=== PATIENT | female | born 1950 | race Caucasian/White ===

== ENCOUNTER 2017-04-13 14:35 | Emergency (ER) | payer OTHER ==
[~2017-04-13] VITALS: Ht 167.6 cm; Wt 64.9 kg
[2017-04-13 15:29] LABS: Basophils # (auto) 0.1 uL; Basophils % (auto) 0.6 % (0.0-2.0); CONDITION Y; DEFINITIVE SEE PRINTOUT; Eosinophils # (auto) 0.9 uL; Eosinophils % (auto) 8.2 % (0.0-7.0); Hematocrit 28.3 % (36.0-46.0); Hemoglobin 9.5 g/dL (12.2-16.2); Lymphocytes # (auto) 1.7 uL; Lymphocytes % (auto) 14.7 % (10.0-50.0); Mean Corpuscular Hemoglobin 30.4 pg (28.0-32.0); Mean Corpuscular Hgb Conc. 33.6 g/dL (32.0-36.0); Mean Corpuscular Volume 90.4 fL (80.0-100.0); Monocytes # (auto) 0.9 uL; Neutrophils # (auto) 7.7 uL; Neutrophils % (auto) 68.5 % (37.0-80.0); Platelet Count (auto) 700 10^3/uL (140-450); White Blood Cell 11.3 10^3/uL (4.4-10.8)
[2017-04-13] MEDS ORDERED: MORPHINE SULF INJ 2 MG/ML SYRINGE 1ML IV ONE (15:30)
[2017-04-13] MEDS ORDERED: ONDANSETRON HCL 4 MG/2 ML VIAL IV ONE (15:30)
[2017-04-13 15:46] LABS: Albumin 2.8 g/dL (3.4-5.0); Alkaline Phosphatase 81 U/L (45-117); Anion Gap 9 (5-15); Aspartate Aminotransferase 10 U/L (15-37); BUN/Creatinine Ratio 11.2; Bilirubin, Total 0.3 mg/dL (0.2-1.0); Blood Urea Nitrogen 14 mg/dL (7-18); Calcium 8.3 mg/dL (8.5-10.1); Carbon Dioxide 26 mmol/L (21-32); Chloride 96 mmol/L (98-107); GFR African American 55 mL/min; GFR Non-African American 45 mL/min; Glucose 113 mg/dL (74-106); Magnesium 2.3 mg/dL (1.6-2.6); Potassium 4.2 mmol/L (3.5-5.1); Sodium 131 mmol/L (136-145); Total Protein 6.4 g/dL (6.4-8.2)
[2017-04-13] MEDS ORDERED: IBUPROFEN 800 MG TAB PO ONE (18:30)
[2017-04-13 18:41] VITALS: BP 155/76
== END 2017-04-13 19:11 | disposition home or self-care (01) ==
LOC: ER 14:35 → EDBD 14:35 → ER 19:11
DX: R07.89 Other chest pain (principal); I10 Essential (primary) hypertension; J44.9 Chronic obstructive pulmonary disease, unspecified; Z95.1 Presence of aortocoronary bypass graft; Z98.890 Other specified postprocedural states; Z87.891 Personal history of nicotine dependence; Z88.6 Allergy status to analgesic agent; Z88.1 Allergy status to other antibiotic agents; Z91.041 Radiographic dye allergy status
CPT/HCPCS: 36415; 71010; 80053; 83735; 84484; 85025; 93005; 94761; 96374; 96375; 99285; J2270; J2405

== ENCOUNTER 2017-09-26 13:25 | Inpatient (IN) | payer OTHER ==
[~2017-09-26] VITALS: Ht 167.6 cm; Wt 65.8 kg
[2017-09-26 14:57] LABS: Urine WBC None Seen /hpf (0 - 5)
[2017-09-26 15:26] LABS: Urine Bacteria NONE SEEN /hpf (None Seen); Urine Blood Negative /uL (Negative); Urine Specific Gravity 1.002 (1.001-1.035)
[2017-09-26] MEDS ORDERED: methylPREDNISolone SOD SUCC 125 MG/2 ML VL IV ONE (17:30)
[2017-09-26] MEDS ORDERED: IPRATROPIUM BROM 0.5 MG/2.5ML INH SOL HHN ONE (17:30)
[2017-09-26] MEDS ORDERED: ALBUTEROL SULF 2.5 MG/0.5ML(0.5%) NEB SOLN HHN ONE (17:30)
[2017-09-26] MEDS ORDERED: cefTRIAXone 1GM/10ml IVPUSH 10 ML IV ONE (17:30)
[2017-09-26 18:03] LABS: Basophils # (auto) 0 uL; Basophils % (auto) 0.3 % (0.0-2.0); Eosinophils # (auto) 0.1 uL; Eosinophils % (auto) 0.5 % (0.0-7.0); Hematocrit 41.5 % (36.0-46.0); Hemoglobin 13.7 g/dL (12.2-16.2); Lymphocytes # (auto) 0.9 uL; Lymphocytes % (auto) 5.8 % (10.0-50.0); Mean Corpuscular Hemoglobin 28.8 pg (28.0-32.0); Mean Corpuscular Hgb Conc. 33.1 g/dL (32.0-36.0); Mean Corpuscular Volume 86.9 fL (80.0-100.0); Monocytes # (auto) 0.5 uL; Neutrophils # (auto) 13.9 uL; Neutrophils % (auto) 90.4 % (37.0-80.0); Platelet Count (auto) 405 10^3/uL (140-450); Red Blood Cells 4.78 10^6/uL (4.0-5.20); Red Cell Distribution Width 15.1 % (11.8-14.3); White Blood Cell 15.4 10^3/uL (4.4-10.8)
[2017-09-26 18:19] LABS: Albumin 3.5 g/dL (3.4-5.0); Bilirubin, Total 0.5 mg/dL (0.2-1.0); Total Protein 7.9 g/dL (6.4-8.2)
[2017-09-26 18:21] LABS: Magnesium 2.3 mg/dL (1.6-2.6)
[2017-09-26] MEDS ORDERED: PROMETHAZINE HCL 25 MG/ML 1ML IV PRN (19:30)
[2017-09-26] MEDS ORDERED: MORPHINE SULFATE 4 MG/ML SYR/VIAL IV PRN (19:30)
[2017-09-26] MEDS ORDERED: MORPHINE SULF INJ 2 MG/ML SYRINGE 1ML IV PRN (19:30)
[2017-09-26] MEDS ORDERED: OSELTAMIVIR 75 MG CAP PO ONE (19:30)
[2017-09-26] MEDS ORDERED: NITROGLYCERIN 0.4 MG SL TAB SL PRN (19:30)
[2017-09-26] MEDS ORDERED: HYDROcodone-ACET 5/325MG TAB PO PRN (19:30)
[2017-09-26] MEDS ORDERED: ALBUTEROL SULF 2.5 MG/0.5ML(0.5%) NEB SOLN NEB PRN (19:30)
[2017-09-26] MEDS ORDERED: ACETAMINOPHEN 500 MG TAB PO PRN (19:30)
[2017-09-26] MEDS ORDERED: LACTULOSE 20Gm/30ML SOLN PO PRN (19:30)
[2017-09-26] MEDS ORDERED: LABETALOL HCL 5 MG/ML ML 20ML VIAL IV PRN ×2 (19:45)
[2017-09-26] MEDS ORDERED: METOPROLOL TARTRATE 50 MG TAB PO ONE (19:45)
[2017-09-26] MEDS ORDERED: cloNIDine HCL 0.1 MG TAB PO ONE (20:45)
[2017-09-26] MEDS ORDERED: AZITHROMYCIN 500MG/ 250ML 250 ML IV SCH (21:00)
[2017-09-26] MEDS: SODIUM CHLORIDE 0.9% 1,000 ML IV SCH (21:06)
[2017-09-26 21:44] VITALS: BP 164/95
[2017-09-26] MEDS ORDERED: CARVEDILOL 3.125 MG TAB PO SCH (22:00)
[2017-09-26] MEDS: hydrALAZINE HCL 10 MG TAB PO SCH (23:03)
[2017-09-27] MEDS: methylPREDNISolone SOD SUCC 40 MG/ML VL IV SCH ×4 (01:32→17:49)
[2017-09-27] MEDS ORDERED: cloNIDine HCL 0.1 MG TAB PO ONE (02:00)
[2017-09-27] MEDS ORDERED: LIDOCAINE HCL 100 MG/5ML (2%) SYRG INJ IV ONE ×2 (06:21→06:30)
[2017-09-27] MEDS: hydrALAZINE HCL 10 MG TAB PO SCH ×2 (06:30→13:58)
[2017-09-27] MEDS: IPRATROPIUM BROM 0.5 MG/2.5ML INH SOL NEB SCH ×3 (06:35→11:48)
[2017-09-27] MEDS: ALBUTEROL SULF 2.5 MG/0.5ML(0.5%) NEB SOLN NEB SCH ×3 (06:35→11:48)
[2017-09-27 07:46] LABS: Basophils # (auto) 0 uL; Basophils % (auto) 0.2 % (0.0-2.0); Eosinophils # (auto) 0 uL; Hematocrit 40.6 % (36.0-46.0); Hemoglobin 13.2 g/dL (12.2-16.2); Lymphocytes # (auto) 0.8 uL; Mean Corpuscular Hemoglobin 28.8 pg (28.0-32.0); Mean Corpuscular Hgb Conc. 32.5 g/dL (32.0-36.0); Mean Corpuscular Volume 88.6 fL (80.0-100.0); Monocytes # (auto) 0.1 uL; Monocytes % (auto) 1.3 % (0.0-12.0); Neutrophils # (auto) 7.5 uL; Neutrophils % (auto) 89.5 % (37.0-80.0); Platelet Count (auto) 363 10^3/uL (140-450); Red Blood Cells 4.58 10^6/uL (4.0-5.20); Red Cell Distribution Width 15.2 % (11.8-14.3); White Blood Cell 8.4 10^3/uL (4.4-10.8)
[2017-09-27 08:05] VITALS: BP 148/84
[2017-09-27 08:19] LABS: Alanine Aminotransferase 18 U/L (13-56); Albumin 3.1 g/dL (3.4-5.0); Alkaline Phosphatase 70 U/L (45-117); Anion Gap 9 (5-15); Aspartate Aminotransferase 10 U/L (15-37); BUN/Creatinine Ratio 14.4; Bilirubin, Total 0.3 mg/dL (0.2-1.0); Blood Urea Nitrogen 17 mg/dL (7-18); Calcium 8.7 mg/dL (8.5-10.1); Carbon Dioxide 25 mmol/L (21-32); Chloride 102 mmol/L (98-107); Cholesterol 218 mg/dL (< 200); GFR African American 58 mL/min; GFR Non-African American 48 mL/min; Glucose 135 mg/dL (74-106); HDL Cholesterol 74 mg/dL (40-59); LDL Cholesterol 150 mg/dL (< 100); Potassium 4.5 mmol/L (3.5-5.1); Sodium 136 mmol/L (136-145); Total Protein 7.3 g/dL (6.4-8.2); Triglycerides 72 mg/dL (< 150)
[2017-09-27] MEDS: SODIUM CHLORIDE 0.9% 1,000 ML IV SCH (09:11)
[2017-09-27] MEDS ORDERED: amLODIPine BESYLATE 5 MG TAB PO ONE (09:15)
[2017-09-27] MEDS ORDERED: ASPirin 81 mg TAB PO SCH (10:00)
[2017-09-27] MEDS ORDERED: OSELTAMIVIR 75 MG CAP PO SCH (10:00)
[2017-09-27] MEDS ORDERED: NITROGLYCERIN 0.2MG/HR TOPICAL PATCH TD SCH (10:00)
[2017-09-27] MEDS ORDERED: ENOXAPARIN SOD 40 MG/0.4 ML SYRINGE SC SCH (10:00)
[2017-09-27] MEDS ORDERED: ENALAPRIL MALEATE 2.5 MG TAB PO SCH (10:00)
[2017-09-27] MEDS ORDERED: METOPROLOL TARTRATE 50 MG TAB PO SCH (10:00)
[2017-09-27 10:55] VITALS: BP 148/84
[2017-09-27] MEDS ORDERED: HYDR10TA26 PO (11:13)
[2017-09-27] MEDS ORDERED: METO-169 PO (11:13)
[2017-09-27] MEDS ORDERED: ALPR0.25 PO (11:13)
[2017-09-27 11:56] VITALS: BP 128/67
[2017-09-27 17:11] VITALS: BP 137/96
[2017-09-27 17:24] VITALS: BP 137/96
[2017-09-27] MEDS ORDERED: cefTRIAXone 1GM/10ml IVPUSH 10 ML IV SCH (21:00)
[2017-09-27] MEDS ORDERED: ATORVASTATIN 20 MG TAB PO SCH (22:00)
[2017-09-28] MEDS ORDERED: AZITHROMYCIN 250 MG TAB PO SCH (10:00)
== END 2017-09-27 18:55 | disposition home or self-care (01) | DRG 871 ==
LOC: ER 13:25 → TELE 13:26 → TELE-EAST 09-27 07:56
PROVIDERS: ADMIT Internal Medicine; ATTEND Internal Medicine
DX: A41.9 Sepsis, unspecified organism (principal); I50.43 Acute on chronic combined systolic (congestive) and diastolic (congestive) heart failure; J96.10 Chronic respiratory failure, unspecified whether with hypoxia or hypercapnia; I11.0 Hypertensive heart disease with heart failure; J18.9 Pneumonia, unspecified organism; Z99.81 Dependence on supplemental oxygen; J44.0 Chronic obstructive pulmonary disease with (acute) lower respiratory infection; J44.1 Chronic obstructive pulmonary disease with (acute) exacerbation; Z95.1 Presence of aortocoronary bypass graft; I16.0 Hypertensive urgency; E78.5 Hyperlipidemia, unspecified; F41.9 Anxiety disorder, unspecified; I25.10 Atherosclerotic heart disease of native coronary artery without angina pectoris; I49.3 Ventricular premature depolarization; J20.9 Acute bronchitis, unspecified; Z79.899 Other long term (current) drug therapy; Z87.891 Personal history of nicotine dependence
CPT/HCPCS: 36415; 80053; 80061; 81001; 82550; 83605; 83735; 83880; 84443; 84484; 85025; 85379; 86141; 87040; 87070; 87205; 87400; 93005; 93306; 94640; 96365; 96375

== ENCOUNTER 2018-03-22 22:11 | Inpatient (IN) | payer OTHER ==
[~2018-03-22] VITALS: Ht 167.6 cm; Wt 72.0 kg
[~2018-03-22 22:11] MED LIST: ALPR0.25 PO; HYDR10TA26 PO; METO-169 PO
[2018-03-23] MEDS ORDERED: IPRATROPIUM BROM 0.5 MG/2.5ML INH SOL ONE (00:21)
[2018-03-23] MEDS ORDERED: ALBUTEROL SULF 2.5 MG/0.5ML(0.5%) NEB SOLN ONE (00:21)
[2018-03-23] MEDS ORDERED: PIPERACILLIN-TAZOB 3.375GM 100 ML IV ONE (00:57)
[2018-03-23] MEDS ORDERED: cefTRIAXone 1GM/10ml IVPUSH 10 ML IV ONE (00:57)
[2018-03-23] MEDS ORDERED: HYDROcodone-ACET 5/325MG TAB ONE (01:49)
[2018-03-23 03:35] LABS: Partial Thromboplastin Time 27.5 sec (23.78-33.04); Prothrombin Time 10.7 sec (9.27-12.13)
[2018-03-23 03:36] LABS: Basophils # (auto) 0.1 uL; Basophils % (auto) 0.3 % (0.0-2.0); Eosinophils # (auto) 0 uL; Eosinophils % (auto) 0.1 % (0.0-7.0); Hematocrit 42.3 % (36.0-46.0); Hemoglobin 14.3 g/dL (12.2-16.2); Lymphocytes # (auto) 1.2 uL; Lymphocytes % (auto) 6.4 % (10.0-50.0); Mean Corpuscular Hemoglobin 30.1 pg (28.0-32.0); Mean Corpuscular Hgb Conc. 33.9 g/dL (32.0-36.0); Mean Corpuscular Volume 88.9 fL (80.0-100.0); Monocytes # (auto) 0.9 uL; Monocytes % (auto) 4.9 % (0.0-12.0); Neutrophils # (auto) 16.1 uL; Neutrophils % (auto) 88.3 % (37.0-80.0); Nucleated Red Blood Cells % 0.1 %; Platelet Count (auto) 302 10^3/uL (140-450); Red Blood Cells 4.76 10^6/uL (4.0-5.20); Red Cell Distribution Width 13.8 % (11.8-14.3); White Blood Cell 18.3 10^3/uL (4.4-10.8)
[2018-03-23] MEDS ORDERED: FUROSEMIDE 20 MG/2 ML VIAL IV ONE (04:30)
[2018-03-23] MEDS ORDERED: ACETAMINOPHEN 500 MG TAB PO PRN (04:30)
[2018-03-23] MEDS ORDERED: FUROSEMIDE 20 MG/2 ML VIAL ONE (04:45)
[2018-03-23] MEDS: CLINDAMYCIN 600MG IV 50 ML IV SCH ×2 (05:36→14:25)
[2018-03-23] MEDS: ONDANSETRON HCL 4 MG/2 ML VIAL IV PRN ×3 (05:38→18:51)
[2018-03-23] MEDS: HYDROcodone-ACET 5/325MG TAB PO PRN ×2 (05:39→14:25)
[2018-03-23 05:54] LABS: Basophils # (auto) 0.1 uL; Basophils % (auto) 0.5 % (0.0-2.0); Eosinophils # (auto) 0 uL; Eosinophils % (auto) 0.1 % (0.0-7.0); Hematocrit 40.4 % (36.0-46.0); Lymphocytes # (auto) 1.2 uL; Lymphocytes % (auto) 6.2 % (10.0-50.0); Mean Corpuscular Hemoglobin 30.5 pg (28.0-32.0); Mean Corpuscular Hgb Conc. 34.7 g/dL (32.0-36.0); Mean Corpuscular Volume 87.8 fL (80.0-100.0); Monocytes # (auto) 1.3 uL; Monocytes % (auto) 6.4 % (0.0-12.0); Neutrophils # (auto) 17.1 uL; Neutrophils % (auto) 86.8 % (37.0-80.0); Nucleated Red Blood Cells % 0.1 %; Platelet Count (auto) 285 10^3/uL (140-450); Red Cell Distribution Width 14.1 % (11.8-14.3); White Blood Cell 19.7 10^3/uL (4.4-10.8)
[2018-03-23] MEDS: IPRATROPIUM BROM 0.5 MG/2.5ML INH SOL NEB SCH ×3 (06:07→19:03)
[2018-03-23] MEDS: ALBUTEROL SULF 2.5 MG/0.5ML(0.5%) NEB SOLN NEB SCH ×3 (06:08→19:03)
[2018-03-23 06:24] LABS: Urine Bacteria NONE SEEN /hpf (None Seen); Urine Blood Negative /uL (Negative); Urine Hyaline Cast FEW /lpf (0 - 2); Urine Specific Gravity 1.013 (1.001-1.035); Urine WBC 4 /hpf (0 - 5)
[2018-03-23 06:58] LABS: Anion Gap 13 (5-15); BUN/Creatinine Ratio 11.2; Blood Urea Nitrogen 24 mg/dL (7-18); Carbon Dioxide 25 mmol/L (21-32); Chloride 101 mmol/L (98-107); GFR African American 29 mL/min; GFR Non-African American 24 mL/min; Glucose 98 mg/dL (74-106); Potassium 4.6 mmol/L (3.5-5.1); Sodium 139 mmol/L (136-145)
[2018-03-23 06:59] LABS: Alanine Aminotransferase 20 U/L (13-56); Albumin 3.3 g/dL (3.4-5.0); Alkaline Phosphatase 61 U/L (45-117); Aspartate Aminotransferase 14 U/L (15-37); Bilirubin, Total 0.8 mg/dL (0.2-1.0); Calcium 8.4 mg/dL (8.5-10.1); Total Protein 6.8 g/dL (6.4-8.2)
[2018-03-23 07:20] VITALS: BP 120/77
[2018-03-23] MEDS ORDERED: cefTRIAXone 1GM/10ml IVPUSH 10 ML IV SCH (09:00)
[2018-03-23] MEDS ORDERED: SPIRONOLACTONE 25 MG TAB PO SCH (10:00)
[2018-03-23] MEDS ORDERED: METOPROLOL SUCCINATE XL 50 MG TAB PO SCH (10:00)
[2018-03-23] MEDS ORDERED: ASPirin-EC 81 mg tab PO SCH (10:00)
[2018-03-23] MEDS ORDERED: FAMOTIDINE 20 MG TAB PO SCH (10:00)
[2018-03-23] MEDS ORDERED: ALBU0.5N2 IN (13:43)
[2018-03-23] MEDS ORDERED: IPRIH IN (13:43)
[2018-03-23] MEDS ORDERED: SPIR25TA89 PO (13:43)
[2018-03-23 14:35] VITALS: BP 111/60
[2018-03-23 16:58] VITALS: BP 127/65
[2018-03-23] MEDS ORDERED: PROMETHAZINE HCL 25 MG/ML 1ML IV PRN (19:15)
[2018-03-23 22:02] VITALS: BP 128/66
[2018-03-24] MEDS ORDERED: FUROSEMIDE 40 MG/4 ML VIAL IV SCH (10:00)
== END 2018-03-24 | disposition short-term general hospital (02) | DRG 604 ==
LOC: ER 22:11 → TELE 22:12 → TELE-WESTW 03-23 12:44
PROVIDERS: ADMIT Nurse Practitioner Family; ATTEND Family Medicine
DX: S21.109A Unspecified open wound of unspecified front wall of thorax without penetration into thoracic cavity, initial encounter (principal); J96.20 Acute and chronic respiratory failure, unspecified whether with hypoxia or hypercapnia; J44.1 Chronic obstructive pulmonary disease with (acute) exacerbation; Z99.81 Dependence on supplemental oxygen; I11.0 Hypertensive heart disease with heart failure; I50.9 Heart failure, unspecified; Z95.1 Presence of aortocoronary bypass graft; E78.5 Hyperlipidemia, unspecified; Z83.3 Family history of diabetes mellitus; Z87.891 Personal history of nicotine dependence; X58.XXXA Exposure to other specified factors, initial encounter; Y93.89 Activity, other specified; Y92.89 Other specified places as the place of occurrence of the external cause; Y99.8 Other external cause status
CPT/HCPCS: 36415; 71045; 80053; 81001; 83735; 83880; 84484; 85025; 85379; 85610; 85730; 87040; 87077; 87086; 87186; 87205; 93005; 94640; 96374; 96375; J2405; J2543; J3490

== ENCOUNTER 2018-05-10 17:11 | Emergency (ER) | payer OTHER ==
[~2018-05-10] VITALS: Ht 167.6 cm; Wt 66.7 kg
[~2018-05-10 17:11] MED LIST changes: +ALBU0.5N2 IN; +IPRIH IN; +SPIR25TA89 PO
[2018-05-11 00:42] LABS: Basophils # (auto) 0.1 uL; Basophils % (auto) 0.8 % (0.0-2.0); Eosinophils # (auto) 0.9 uL; Eosinophils % (auto) 10.9 % (0.0-7.0); Hematocrit 38.6 % (36.0-46.0); Hemoglobin 12.8 g/dL (12.2-16.2); Lymphocytes # (auto) 2.3 uL; Mean Corpuscular Hgb Conc. 33.1 g/dL (32.0-36.0); Mean Corpuscular Volume 84.7 fL (80.0-100.0); Monocytes # (auto) 0.8 uL; Monocytes % (auto) 9.1 % (0.0-12.0); Neutrophils # (auto) 4.2 uL; Neutrophils % (auto) 51.2 % (37.0-80.0); Platelet Count (auto) 445 10^3/uL (140-450); Red Blood Cells 4.56 10^6/uL (4.0-5.20); Red Cell Distribution Width 13.9 % (11.8-14.3); White Blood Cell 8.3 10^3/uL (4.4-10.8)
[2018-05-11 00:59] LABS: BUN/Creatinine Ratio 16.9; Calcium 8.7 mg/dL (8.5-10.1)
[2018-05-11] MEDS ORDERED: VANCOMYCIN 1GM/250ML 250 ML IV ONE (03:15)
[2018-05-11] MEDS ORDERED: HYDROcodone-ACET 10/325MG TAB PO ONE (03:15)
[2018-05-11 04:15] VITALS: BP 120/78
== END 2018-05-11 04:06 | disposition home or self-care (01) ==
LOC: ER 17:20
DX: T81.32XA Disruption of internal operation (surgical) wound, not elsewhere classified, initial encounter (principal); T81.4XXA Infection following a procedure, initial encounter; J44.9 Chronic obstructive pulmonary disease, unspecified; E78.5 Hyperlipidemia, unspecified; I10 Essential (primary) hypertension; I25.810 Atherosclerosis of coronary artery bypass graft(s) without angina pectoris; Z88.8 Allergy status to other drugs, medicaments and biological substances; Z88.1 Allergy status to other antibiotic agents; Z79.899 Other long term (current) drug therapy; Z95.1 Presence of aortocoronary bypass graft; Z87.891 Personal history of nicotine dependence; Y84.2 Radiological procedure and radiotherapy as the cause of abnormal reaction of the patient, or of later complication, without mention of misadventure at the time of the procedure; Y92.89 Other specified places as the place of occurrence of the external cause
CPT/HCPCS: 36415; 80048; 85025; 87205; 93005; 99285; J3370

== ENCOUNTER 2019-07-17 07:01 | Inpatient (IN) | payer OTHER ==
[~2019-07-17] VITALS: Ht 162.6 cm; Wt 66.6 kg
[~2019-07-17 07:01] MED LIST changes: +SPIR25TA8 PO; -SPIR25TA89 PO
[2019-07-17] MEDS ORDERED: methylPREDNISolone SOD SUCC 125 MG/2 ML VL IV ONE (07:15)
[2019-07-17] MEDS ORDERED: diphenhdrAMINE HCL 50 MG/1 ML VL IV ONE (07:15)
[2019-07-17] MEDS ORDERED: cefTRIAXone 1GM/50ML D5W 50 ML IV ONE (07:30)
[2019-07-17] MEDS ORDERED: IPRATROPIUM BROM 0.5 MG/2.5ML INH SOL NEB ONE (07:30)
[2019-07-17] MEDS ORDERED: ALBUTEROL SULF 2.5 MG/0.5ML(0.5%) NEB SOLN NEB ONE (07:30)
[2019-07-17 07:43] LABS: Basophils # (auto) 0.1 uL; Basophils % (auto) 0.5 % (0.0-2.0); Eosinophils # (auto) 0 uL; Eosinophils % (auto) 0.2 % (0.0-7.0); Hematocrit 45.7 % (36.0-46.0); Hemoglobin 15.2 g/dL (12.2-16.2); Lymphocytes # (auto) 1.2 uL; Mean Corpuscular Hemoglobin 29.9 pg (28.0-32.0); Mean Corpuscular Hgb Conc. 33.2 g/dL (32.0-36.0); Mean Corpuscular Volume 89.9 fL (80.0-100.0); Monocytes # (auto) 1.1 uL; Monocytes % (auto) 10.5 % (0.0-12.0); Neutrophils # (auto) 7.7 uL; Neutrophils % (auto) 76.8 % (37.0-80.0); Nucleated Red Blood Cells % 0.1 %; Platelet Count (auto) 312 10^3/uL (140-450); Red Blood Cells 5.09 10^6/uL (4.0-5.20); Red Cell Distribution Width 13.7 % (11.8-14.3)
[2019-07-17 08:07] LABS: Alanine Aminotransferase 23 U/L (13-56); Albumin 3.5 g/dL (3.4-5.0); Anion Gap 6 (5-15); Aspartate Aminotransferase 16 U/L (15-37); BUN/Creatinine Ratio 16.2; Blood Urea Nitrogen 19 mg/dL (7-18); Calcium 8.6 mg/dL (8.5-10.1); Carbon Dioxide 32 mmol/L (21-32); Chloride 99 mmol/L (98-107); GFR African American 59 mL/min; GFR Non-African American 49 mL/min; Glucose 99 mg/dL (74-106); Magnesium 2.3 mg/dL (1.6-2.6); Potassium 3.8 mmol/L (3.5-5.1); Sodium 137 mmol/L (136-145)
[2019-07-17 08:10] LABS: Alkaline Phosphatase 80 U/L (45-117); Bilirubin, Total 0.3 mg/dL (0.2-1.0); Total Protein 7.2 g/dL (6.4-8.2)
[2019-07-17] MEDS ORDERED: HYDR-4296 PO (09:26)
[2019-07-17] MEDS ORDERED: ASPI81CH43 PO (09:26)
[2019-07-17] MEDS ORDERED: AMLO5TAB15 PO (09:26)
[2019-07-17] MEDS ORDERED: METH4PAK PO (09:26)
[2019-07-17] MEDS ORDERED: AZITHROMYCIN 250 MG TAB PO ONE (13:15)
[2019-07-17] MEDS ORDERED: HYDROcodone-ACET 5/325MG TAB PO PRN (13:15)
[2019-07-17] MEDS ORDERED: ONDANSETRON HCL 4 MG/2 ML VIAL IV PRN (13:15)
[2019-07-17] MEDS ORDERED: ENALAPRILAT 1.25 MG/ML-1ML VIAL IV PRN (13:15)
[2019-07-17] MEDS ORDERED: ACETAMINOPHEN 500 MG TAB PO PRN (13:15)
[2019-07-17] MEDS ORDERED: MORPHINE SULF INJ 2 MG/ML SYRINGE 1ML IV PRN ×2 (13:15)
[2019-07-17] MEDS ORDERED: NITROGLYCERIN 0.4 MG SL TAB SL PRN (13:15)
[2019-07-17 13:52] VITALS: BP 171/72
[2019-07-17] MEDS: hydrALAZINE HCL 25 MG TAB PO SCH ×2 (14:00→21:48)
[2019-07-17] MEDS: ALBUTEROL SULF 2.5 MG/0.5ML(0.5%) NEB SOLN NEB SCH ×3 (14:09→22:35)
[2019-07-17] MEDS: IPRATROPIUM BROM 0.5 MG/2.5ML INH SOL NEB SCH ×3 (14:09→22:36)
--- NOTE | 2019-07-17 15:06 | NUR ---
Telemetry admit from ER SHELBY LUGO admitted to Telemetry unit after SBAR received. Patient oriented to SEAN CARRILLO, primary RN, unit, room, bed, and unit policies regarding patient care and visiting hours. Patient now on continuous telemetry monitoring. Patient placed on bedside oxygen, weighed by bedscale and encouraged to call if they need something. All questions and concerns addressed, patient verbalized understanding.
[2019-07-17 16:34] VITALS: BP 153/74
--- NOTE | 2019-07-17 17:00 | NUR ---
PT REPORTED HOME MEDS IN HER POSSESSION. WILL LABEL AND PLACE IN NURSES STATION. DAUGHTER WILL WELDING MACHINE OPERATOR [employer].
[2019-07-17] MEDS: BUDESONIDE (INHALATION) 0.5 MG/2 ML NEB NEB SCH (18:00)
--- NOTE | 2019-07-17 19:00 | NUR ---
HOME MEDICATIONS PATIENT REPORTED THAT HER DAUGHTER WOULD COME IN TO GRINDER HER MEDICATIONS AND REFUSED TO HAVE THEM HELD IN THE NURSES STATION. PATIENT STATED "YOU WILL NOT TAKE MY MEDICATIONS. LAST TIME THEY GOT LOST". WILL REPORT TO NIGHT NURSE.
--- NOTE | 2019-07-17 19:00 | NUR ---
OPENING NOTE- NOC SHIFT PATIENT IS ALERT AND ORIENTED X4 AND ANSWERS IN COMPLETE SENTENCES; PAUSING AND TAKING BREATHS IN BETWEEN EVERY FEW WORDS. PATIENT HAS 2L NC SAT O2 IS 96%. PATIENT IS IN BED, BED IS UP >30 DEGREES FOR SAFETY PRECAUTIONS. BED RAILS UP X2 AND BEDSIDE TABLE WITH PERSONAL BELONGINGS WITHIN REACH. DISCUSSED POC WITH PATIENT AND INSTRUCTED PATIENT TO CALL PRN; PATIENT VERBALIZED UNDERSTANDING. WILL CONTINUE TO MONITOR Q1H AND PRN. PATIENT ROOM IS DIRECTLY ACROSS FROM NURSE'S STATION.
--- NOTE | 2019-07-17 19:30 | NUR ---
IV TO RIGHT FOREARM NOT FLUSHING. PATIENT REPORTS PAIN TO SITE. IV removal IV DC'd with sterile technique, catheter fully intact. Pressure dressing applied to site. Patient tolerated procedure well.
[2019-07-17 20:00] VITALS: BP 160/75
--- NOTE | 2019-07-17 20:10 | NUR ---
MRSA RUSSO SWAB SENT TO LAB
--- NOTE | 2019-07-17 20:10 | NUR ---
INFLUENZA SWAB SENT TO LAB
--- NOTE | 2019-07-17 21:45 | NUR ---
PATIENT STATES THAT SHE IS ABLE TO TAKE SOLUMEDROL WITH BENADRYL WITHOUT HAVING AN ADVERSE REACTION. WILL ADMINISTER AND MONITOR CLOSELY.
[2019-07-17] MEDS: methylPREDNISolone SOD SUCC 40 MG/ML VL IV SCH (21:47)
[2019-07-17] MEDS: diphenhdrAMINE HCL 50 MG/1 ML VL IV PRN (21:48)
--- NOTE | 2019-07-17 21:55 | NUR ---
PATIENT RESTING IN BED. NO RASH NOTED. NO S/SX OF DISTRESS, SOB OR PAIN. PATIENT ALERT AND ORIENTED X4, SITTING UP IN BED WATCHING TELEVISION.
[2019-07-17] MEDS: ALPRAZolam 0.25 MG TAB PO SCH (21:59)
[2019-07-17 22:00] VITALS: BP 160/75
--- NOTE | 2019-07-17 22:10 | NUR ---
PATIENT SITTING UP IN BED. PATIENT ANSWERS IN COMPLETE SENTENCES. NO RASH OR REDNESS NOTED. IV SITE CLEAR OF ADVERSITY.
--- NOTE | 2019-07-17 22:30 | NUR ---
PATIENT TOLERATED SOLUMEDROL WITH BENADRYL WELL AND WITHOUT ADVERSE SIDE EFFECTS. WILL ENDORSE TO DAY SHIFT NURSE TO FOLLOW UP WITH MD FOR FURTHER ORDERS OR IF OK TO CONTINUE TO ADMINISTER SOLUMEDROL WITH BENADRYL.
--- NOTE | 2019-07-17 22:35 | NUR ---
RT AT BEDSIDE FOR SCHEDULED NEB TX.
--- NOTE | 2019-07-18 00:43 | NUR ---
ROUNDS PATIENT COMFORTABLE IN BED, SLEEPING. RESPIRATIONS ARE EVEN AND UNLABORED. 2L NC. NO S/SX OF DISTRESS OR SOB.
--- NOTE | 2019-07-18 00:50 | NUR ---
BLOOD CULTURE POSITIVE FOR GRAM POSITIVE COCCI IN CLUSTERS PER STOCK CHECKERER. WILL PAGE HOSPITALIST.
[2019-07-18] MEDS: IPRATROPIUM BROM 0.5 MG/2.5ML INH SOL NEB SCH ×6 (02:04→22:22)
[2019-07-18] MEDS: ALBUTEROL SULF 2.5 MG/0.5ML(0.5%) NEB SOLN NEB SCH ×6 (02:04→22:22)
--- NOTE | 2019-07-18 04:05 | NUR ---
PAGED HOSPITALIST TO REPORT POSITIVE BLOOD CULTURE RESULTS. AWAITING CALL BACK.
--- NOTE | 2019-07-18 05:30 | NUR ---
HOSPITALIST CALL BACK WITH ORDERS FOR POSITIVE BLOOD CULTURE.
[2019-07-18 05:36] VITALS: BP 142/75
[2019-07-18] MEDS ORDERED: VANCOMYCIN PER PHARMACY 0 MG IV SCH (06:30)
[2019-07-18] MEDS ORDERED: VANCOMYCIN 1GM/250ML 250 ML IV ONE (06:30)
[2019-07-18] MEDS: hydrALAZINE HCL 25 MG TAB PO SCH ×3 (06:50→22:13)
[2019-07-18 06:57] LABS: Basophils # (auto) 0 uL; Basophils % (auto) 0.2 % (0.0-2.0); Eosinophils # (auto) 0 uL; Hematocrit 42.6 % (36.0-46.0); Hemoglobin 14.1 g/dL (12.2-16.2); Lymphocytes # (auto) 0.5 uL; Lymphocytes % (auto) 6.9 % (10.0-50.0); Mean Corpuscular Hgb Conc. 33.2 g/dL (32.0-36.0); Mean Corpuscular Volume 90.4 fL (80.0-100.0); Monocytes # (auto) 0.3 uL; Monocytes % (auto) 3.5 % (0.0-12.0); Neutrophils % (auto) 89.4 % (37.0-80.0); Platelet Count (auto) 272 10^3/uL (140-450); Red Blood Cells 4.71 10^6/uL (4.0-5.20); Red Cell Distribution Width 13.5 % (11.8-14.3); White Blood Cell 7.8 10^3/uL (4.4-10.8)
[2019-07-18 07:02] LABS: Potassium 4.5 mmol/L (3.5-5.1)
[2019-07-18 07:11] LABS: Albumin 3.2 g/dL (3.4-5.0); BUN/Creatinine Ratio 23.8; Bilirubin, Total 0.2 mg/dL (0.2-1.0); Calcium 8.8 mg/dL (8.5-10.1); Total Protein 6.5 g/dL (6.4-8.2)
--- NOTE | 2019-07-18 07:42 | NUR ---
ENDORSED PATIENT CARE TO DAY SHIFT NURSE JOHN YOST. NO S/SX OF DISTRESS, SOB OR PAIN.
[2019-07-18 08:00] VITALS: BP 152/79
[2019-07-18] MEDS: ASPirin-EC 325mg tab PO SCH (10:14)
[2019-07-18] MEDS: methylPREDNISolone SOD SUCC 40 MG/ML VL IV SCH ×2 (10:15→22:07)
[2019-07-18] MEDS: diphenhdrAMINE HCL 50 MG/1 ML VL IV PRN ×2 (10:15→22:07)
[2019-07-18] MEDS: AZITHROMYCIN 250 MG TAB PO SCH (10:15)
[2019-07-18] MEDS: amLODIPine BESYLATE 5 MG TAB PO SCH (10:17)
[2019-07-18] MEDS: BUDESONIDE (INHALATION) 0.5 MG/2 ML NEB NEB SCH ×2 (10:32→18:50)
[2019-07-18 12:00] VITALS: BP 158/78
[2019-07-18] MEDS ORDERED: ALPRAZolam 0.25 MG TAB PO PRN (15:00)
[2019-07-18 16:49] VITALS: BP 159/83
--- NOTE | 2019-07-18 19:00 | NUR ---
OPENING NOTE- NOC SHIFT PATIENT IS ALERT SITTING UP IN BED. BED IS LOCKED AT LOWEST. DISCUSSED POC WITH PATIENT AND INSTRUCTED PATIENT TO CALL PRN; PATIENT VERBALIZED UNDERSTANDING. WILL CONTINUE TO MONITOR FOR CHANGES.
--- NOTE | 2019-07-18 20:25 | NUR ---
PATIENT WITH MODERATE SOB WITH MINIMAL EXERTION. PATIENT USED COMMODE, BECAME SOB WHEN GETTING BACK INTO BED. HEAD OF BED IS UP >3O DEGREES. NC AT 2L. SAT 02 IS 89%; PATIENT DOES NOT WANT O2 LEVEL INCREASED.
--- NOTE | 2019-07-18 20:30 | NUR ---
PAGED RT FOR BIPAP
--- NOTE | 2019-07-18 20:59 | NUR ---
RT AT BEDSIDE TO GET PATIENT ON BIPAP
[2019-07-18 21:50] VITALS: BP 174/75
[2019-07-18] MEDS: ALPRAZolam 0.25 MG TAB PO SCH (22:00)
--- NOTE | 2019-07-18 22:22 | NUR ---
RT AT BEDSIDE FOR SCHEDULED BREATHING TREATMENT
--- NOTE | 2019-07-19 02:22 | NUR ---
RT AT BEDSIDE FOR SCHEDULED BREATHING TREATMENT.
[2019-07-19] MEDS: ALBUTEROL SULF 2.5 MG/0.5ML(0.5%) NEB SOLN NEB SCH ×6 (02:24→22:09)
[2019-07-19] MEDS: IPRATROPIUM BROM 0.5 MG/2.5ML INH SOL NEB SCH ×6 (02:24→22:09)
--- NOTE | 2019-07-19 04:07 | NUR ---
EKG FOR CHEST PAIN PATIENT REPORTS PRESSURE PAIN TO CHEST /10. ADMINISTERED 1 DOSE OF NITROGLYCERIN PER MD ORDERS ON eMAR, CHEST PAIN PROTOCOL. CHEST PAIN RESOLVED AFTER ONE NITROGLYCERIN DOSE. BP 154/88 HR 93
--- NOTE | 2019-07-19 04:56 | NUR ---
ROUNDS PATIENT IS COMFORTABLE IN BED. DENIES CHEST PAIN. USING NC AT 2L. PATIENT TOLERATING WELL.
[2019-07-19] MEDS: BUDESONIDE (INHALATION) 0.5 MG/2 ML NEB NEB SCH ×2 (06:00→19:03)
--- NOTE | 2019-07-19 06:03 | NUR ---
RT AT BEDSIDE FOR SCHEDULED TREATMENT.
--- NOTE | 2019-07-19 06:23 | NUR ---
PT REQUESTING CORTES INSERTION PATIENT STATES THAT SHE IS HAVING TO GET UP TO "PEE EVERY 30 MINUTES AND I AM EXHAUSTED." WILL ENDORSE REQUEST TO DAY SHIFT NURSE.
[2019-07-19 06:33] LABS: Basophils # (auto) 0 uL; Basophils % (auto) 0.1 % (0.0-2.0); Eosinophils # (auto) 0 uL; Hemoglobin 14.1 g/dL (12.2-16.2); Lymphocytes # (auto) 0.6 uL; Lymphocytes % (auto) 4.5 % (10.0-50.0); Mean Corpuscular Hemoglobin 29.4 pg (28.0-32.0); Mean Corpuscular Hgb Conc. 32.8 g/dL (32.0-36.0); Mean Corpuscular Volume 89.7 fL (80.0-100.0); Monocytes # (auto) 0.5 uL; Monocytes % (auto) 3.5 % (0.0-12.0); Neutrophils # (auto) 12.5 uL; Neutrophils % (auto) 91.9 % (37.0-80.0); Platelet Count (auto) 281 10^3/uL (140-450); Red Blood Cells 4.79 10^6/uL (4.0-5.20); Red Cell Distribution Width 13.9 % (11.8-14.3); White Blood Cell 13.6 10^3/uL (4.4-10.8)
[2019-07-19] MEDS: hydrALAZINE HCL 25 MG TAB PO SCH ×3 (06:35→21:55)
[2019-07-19] MEDS: VANCOMYCIN 1GM/250ML 250 ML IV SCH (06:35)
[2019-07-19 06:52] LABS: BUN/Creatinine Ratio 31.2; Magnesium 2.7 mg/dL (1.6-2.6); Potassium 4.4 mmol/L (3.5-5.1)
--- NOTE | 2019-07-19 08:00 | NUR ---
Opening Shift Note Assumed care of patient, awake and alert. No S/S of distress/SOB or pain. Instructed on POC and to call for assist PRN, will continue to monitor for changes Q1hr and PRN.
[2019-07-19 08:47] VITALS: BP 189/86
[2019-07-19] MEDS: ASPirin-EC 325mg tab PO SCH (09:45)
[2019-07-19] MEDS: methylPREDNISolone SOD SUCC 40 MG/ML VL IV SCH (09:45)
[2019-07-19] MEDS: amLODIPine BESYLATE 5 MG TAB PO SCH (09:45)
[2019-07-19] MEDS: diphenhdrAMINE HCL 50 MG/1 ML VL IV PRN ×2 (09:45→21:56)
[2019-07-19] MEDS: AZITHROMYCIN 250 MG TAB PO SCH (09:46)
--- NOTE | 2019-07-19 11:42 | NUR ---
Nutrition Assessment Notes please see attached link for complete assessment Estimated need based on BW (62 kg): 1550-1860kcal (25-30 kcal/kg BW), 49-62 gms protein (0.8-1.0 g/kg BW r/t elev RFT). Will continue to monitor pertinent labs and reassess nutrient need prn Addendum: 07/19/19 at [address] Amended: Links added.
[2019-07-19] MEDS: SALINE 0.65 % NASAL SPRAY 45ML BOTTLE EACHNOSTRI SCH ×3 (12:55→21:55)
[2019-07-19 13:00] VITALS: BP 152/77
[2019-07-19] MEDS ORDERED: SALINE 0.65 % NASAL SPRAY 45ML BOTTLE EACHNOSTRI ONE (13:00)
[2019-07-19 17:00] VITALS: BP 151/81
--- NOTE | 2019-07-19 21:29 | NUR ---
IV removal d/t infiltration: IV to left hand DC'd with sterile technique, catheter fully intact. Pressure dressing applied to site. Patient tolerated procedure well.
--- NOTE | 2019-07-19 21:30 | NUR ---
IV insertion IV access to left forearm obtained, via clean sterile technique by inserting 24 gauge catheter after first attempt. IV secured properly. No trauma to site. Patient tolerated well. NOTE: Patient was requesting to have the smallest size IV possible d/t patient stating "I hate getting poked".
[2019-07-19 21:48] VITALS: BP 133/65
[2019-07-19 21:51] VITALS: BP 133/65
[2019-07-19] MEDS: methylPREDNISolone SOD SUCC 125 MG/2 ML VL IV SCH (21:55)
[2019-07-19] MEDS: ALPRAZolam 0.25 MG TAB PO SCH (21:56)
--- NOTE | 2019-07-19 21:56 | NUR ---
Patient refused 2200 blood pressure medication d/t patient stating diastolic BP is to low for her to take any blood pressure medications. Patients BP was 133/65.
[2019-07-20] MEDS: ALBUTEROL SULF 2.5 MG/0.5ML(0.5%) NEB SOLN NEB SCH ×6 (02:11→22:14)
[2019-07-20] MEDS: IPRATROPIUM BROM 0.5 MG/2.5ML INH SOL NEB SCH ×6 (02:11→22:14)
--- NOTE | 2019-07-20 04:21 | NUR ---
Care endorsed to Brenda YOST.
[2019-07-20 04:44] VITALS: BP 143/78
[2019-07-20] MEDS: hydrALAZINE HCL 25 MG TAB PO SCH ×3 (06:00→22:27)
[2019-07-20] MEDS: SALINE 0.65 % NASAL SPRAY 45ML BOTTLE EACHNOSTRI SCH ×4 (06:11→22:11)
[2019-07-20] MEDS: VANCOMYCIN 1GM/250ML 250 ML IV SCH (06:47)
--- NOTE | 2019-07-20 07:00 | NUR ---
Closing Note patient resting in bed with oxygen on at 2L via NC with even and unlabored respirations, no s/s of distress. Bed low locked position with side rails up x 2 and call light within reach. Endorsed care to day shift RN.
[2019-07-20] MEDS: BUDESONIDE (INHALATION) 0.5 MG/2 ML NEB NEB SCH ×2 (07:19→17:47)
[2019-07-20 07:29] VITALS: BP 162/85
[2019-07-20 08:13] VITALS: BP 159/83
[2019-07-20] MEDS: methylPREDNISolone SOD SUCC 125 MG/2 ML VL IV SCH (09:21)
[2019-07-20] MEDS: diphenhdrAMINE HCL 50 MG/1 ML VL IV PRN ×2 (09:21→22:11)
[2019-07-20] MEDS: ASPirin-EC 325mg tab PO SCH (09:21)
[2019-07-20] MEDS: amLODIPine BESYLATE 5 MG TAB PO SCH (09:21)
[2019-07-20] MEDS: AZITHROMYCIN 250 MG TAB PO SCH (09:22)
[2019-07-20 11:55] VITALS: BP 164/84
[2019-07-20 12:46] LABS: BUN/Creatinine Ratio 36.1; Calcium 9.2 mg/dL (8.5-10.1); Potassium 4.6 mmol/L (3.5-5.1)
--- NOTE | 2019-07-20 14:00 | NUR ---
UNABLE TO TO ADMINISTER 1400 [address]. TX. AT THIS TIME, DUE TO BRONCHOSCOPY PROCEDURE IN GI LAB, WILL SEE PT. FOR NEXT SCHEDULED TX. OR PT. MAY CALL IF NEEDED.
[2019-07-20 17:00] VITALS: BP 158/85
--- NOTE | 2019-07-20 19:45 | NUR ---
Opening Shift Note Assumed care of patient, awake and alert, oriented x 4, follows directions, clear speech. On oxygen at 2L via NC with even and unlabored respirations, no S/S of distress or SOB.Patient is able to turn independently in bed. IV intact and patent. bed low locked position with side rails up x 2 and call light within reach. Instructed on POC and to call for assist PRN, will continue to monitor for changes Q1hr and PRN.
[2019-07-20 22:00] VITALS: BP 160/91
[2019-07-20] MEDS: ALPRAZolam 0.25 MG TAB PO SCH (22:00)
[2019-07-20] MEDS: methylPREDNISolone SOD SUCC 40 MG/ML VL IV SCH (22:11)
[2019-07-21] VITALS (8 sets, daily range): BP systolic 146–169; BP diastolic 81–93
[2019-07-21] MEDS: hydrALAZINE HCL 25 MG TAB PO SCH ×3 (05:18→21:27)
[2019-07-21] MEDS: SALINE 0.65 % NASAL SPRAY 45ML BOTTLE EACHNOSTRI SCH ×4 (05:19→21:28)
[2019-07-21] MEDS: BUDESONIDE (INHALATION) 0.5 MG/2 ML NEB NEB SCH ×2 (05:53→22:35)
[2019-07-21] MEDS: ALBUTEROL SULF 2.5 MG/0.5ML(0.5%) NEB SOLN NEB SCH ×5 (05:53→22:34)
[2019-07-21] MEDS: IPRATROPIUM BROM 0.5 MG/2.5ML INH SOL NEB SCH ×5 (05:53→22:35)
[2019-07-21] MEDS: VANCOMYCIN 1GM/250ML 250 ML IV SCH (06:59)
[2019-07-21] MEDS ORDERED: diphenhdrAMINE HCL 50 MG/1 ML VL ONE (10:02)
[2019-07-21] MEDS: AZITHROMYCIN 250 MG TAB PO SCH (10:09)
[2019-07-21] MEDS: ASPirin-EC 325mg tab PO SCH (10:09)
[2019-07-21] MEDS: methylPREDNISolone SOD SUCC 40 MG/ML VL IV SCH ×2 (10:10→22:18)
[2019-07-21] MEDS: amLODIPine BESYLATE 5 MG TAB PO SCH (10:10)
[2019-07-21] MEDS: diphenhdrAMINE HCL 50 MG/1 ML VL IV PRN ×2 (10:11→22:18)
--- NOTE | 2019-07-21 15:20 | NUR ---
MD ROUNDS DR CRUZ AT BEDSIDE DISCUSSING POC WITH PATIENT. ALL QUESTIONS/CONCERNS ANSWERED. NEW ORDERS RECEIVED/CARRIED OUT. WILL CONTINUE TO MONITOR
--- NOTE | 2019-07-21 16:36 | NUR ---
assessment Patient is a 68 year old female who is alert and oriented. Patients cognitive abilities are intact. Prior to admission patient lived home with her daughter Mariola and functioned with assistance. Per patient she will return home to her prior living arrangements post discharge and family will transport her home. Patient informed me she has a scooter, 02, and a fww for home use. Patient was admitted for exacerbation of her COPD. Patient informed me she is feeling better and has what she needs at home. Patient may benefit from home health safety eval on discharge. I informed patient she has a right to speak to a rn social services regarding all care. I informed patient she has a right to participate in any and all discharge planning. Patient has a POA and advanced directive. Patient verbalized understanding and agreed to discharge plan. Addendum: 07/21/19 at 1642 by Neeru KAUR Amended: Links added.
--- NOTE | 2019-07-21 19:20 | NUR ---
Opening Shift Note Assumed care of patient, awake and alert x4. Patient denies pain at this time. No S/S of distress noted at this time. Instructed on plan of care and to call for assistance as needed, patient verbalized understanding. Bed is locked in lowest position, side rails x 2 are up, and call light is within reach.
[2019-07-21] MEDS: ALPRAZolam 0.25 MG TAB PO SCH (21:28)
--- NOTE | 2019-07-21 22:00 | NUR ---
IV REMOVAL IV to left forearm noted to be swollen and resistant when flushing. IV to left forearm DC'd with clean sterile technique, catheter fully intact. Pressure dressing applied to site. Provided patient with an ice pack and instructed patient to place ice pack over site and elevate arm, patient verbalized understanding.
--- NOTE | 2019-07-21 22:15 | NUR ---
IV INSERTION IV access obtained, via clean sterile technique by inserting 22 gauge catheter at right hand after 1 attempt. IV secured properly. No trauma to site. Patient tolerated well.
[2019-07-22] MEDS: hydrALAZINE HCL 25 MG TAB PO SCH ×2 (04:49→14:00)
[2019-07-22 04:54] VITALS: BP 168/82
[2019-07-22] MEDS: IPRATROPIUM BROM 0.5 MG/2.5ML INH SOL NEB SCH ×3 (06:13→13:58)
[2019-07-22] MEDS: ALBUTEROL SULF 2.5 MG/0.5ML(0.5%) NEB SOLN NEB SCH ×3 (06:13→13:58)
[2019-07-22] MEDS: SALINE 0.65 % NASAL SPRAY 45ML BOTTLE EACHNOSTRI SCH ×2 (06:25→12:00)
[2019-07-22] MEDS: VANCOMYCIN 1GM/250ML 250 ML IV SCH (06:25)
[2019-07-22 06:35] VITALS: BP 155/84
--- NOTE | 2019-07-22 07:25 | NUR ---
Open Shift Note Received report on patient, awake and sitting up in bed. Patient shows no signs of distress at this time, states "I feel better than yesterday". Discussed POC with patient, patient states they want to go home today. Bed in lowest locked position, side rails up x2 and call light within reach. Will continue to monitor.
[2019-07-22 08:29] VITALS: BP 162/88
[2019-07-22] MEDS: ASPirin-EC 325mg tab PO SCH (10:04)
[2019-07-22] MEDS: methylPREDNISolone SOD SUCC 40 MG/ML VL IV SCH (10:04)
[2019-07-22] MEDS: diphenhdrAMINE HCL 50 MG/1 ML VL IV PRN (10:04)
[2019-07-22] MEDS: AZITHROMYCIN 250 MG TAB PO SCH (10:05)
[2019-07-22] MEDS: amLODIPine BESYLATE 5 MG TAB PO SCH (10:05)
[2019-07-22] MEDS: BUDESONIDE (INHALATION) 0.5 MG/2 ML NEB NEB SCH (10:12)
[2019-07-22 12:45] VITALS: BP 150/83
[2019-07-22 14:13] VITALS: BP 150/83
--- NOTE | 2019-07-22 15:15 | NUR ---
Discharged Discharge instructions given as ordered. Encourage to follow up with PMD as instructed. All questions and concerns addressed. Patient verbalized understanding. New prescriptions given to patient, and patient given med rec and informed to continue home medications. IV removed with catheter intact, pressure dressing applied. Telemetry unit returned to ICU. Patient taken to vehicle via wheelchair with all personal belongings, accompanied by staff and family member. No distress noted at time of departure.
== END 2019-07-22 16:37 | disposition home or self-care (01) | DRG 189 ==
LOC: EDBD 07:01 → ER 07:08 → TELE 07:09 → TELE-EAST 15:07
PROVIDERS: ADMIT Nurse Practitioner Acute Care; ATTEND Internal Medicine Geriatric Medicine
PROC: 5A09357 Assistance with Respiratory Ventilation, Less than 24 Consecutive Hours, Continuous Positive Airway Pressure (ICD-10-PCS; principal; 2019-07-17)
PROC: 5A09357 Assistance with Respiratory Ventilation, Less than 24 Consecutive Hours, Continuous Positive Airway Pressure (ICD-10-PCS; 2019-07-18)
DX: J96.20 Acute and chronic respiratory failure, unspecified whether with hypoxia or hypercapnia (principal); N18.3 Chronic kidney disease, stage 3 (moderate); J43.9 Emphysema, unspecified; I12.9 Hypertensive chronic kidney disease with stage 1 through stage 4 chronic kidney disease, or unspecified chronic kidney disease; I25.10 Atherosclerotic heart disease of native coronary artery without angina pectoris; Z95.1 Presence of aortocoronary bypass graft; F41.9 Anxiety disorder, unspecified; Z79.82 Long term (current) use of aspirin; Z79.899 Other long term (current) drug therapy; Z83.3 Family history of diabetes mellitus; Z87.891 Personal history of nicotine dependence; Z99.81 Dependence on supplemental oxygen
CPT/HCPCS: 36415; 36600; 71045; 80048; 80053; 80202; 82805; 83605; 83735; 83880; 84484; 85025; 87040; 87077; 87081; 87186; 87804; 93005; 93306; 94640; 94660; 94761; 96365; 96375; 99291; G0378; J0696

== ENCOUNTER 2020-03-25 08:11 | Inpatient (IN) | payer OTHER ==
[~2020-03-25] VITALS: Ht 162.6 cm; Wt 76.0 kg
[~2020-03-25 08:11] MED LIST changes: +AMLO5TAB15 PO; +ASPI81CH43 PO; +HYDR-4296 PO; -HYDR10TA26 PO; +METH4PAK PO; -SPIR25TA8 PO
[2020-03-25] MEDS ORDERED: methylPREDNISolone SOD SUCC 125 MG/2 ML VL ONE (08:17)
[2020-03-25] MEDS ORDERED: EPINEPHrine HCL 0.5 ML NEB ONE (08:20)
[2020-03-25] MEDS ORDERED: SODIUM CHLORIDE 0.9% 1,000 ML IV ONE ×2 (08:34→16:00)
[2020-03-25 08:48] LABS: Basophils # (auto) 0.1 10 ^3/uL (0-0.2); Basophils % (auto) 0.7 % (0.0-2.0); Eosinophils # (auto) 0.3 10 ^3/uL (0-0.8); Eosinophils % (auto) 4.1 % (0.0-7.0); Hematocrit 38.1 % (36.0-46.0); Lymphocytes # (auto) 1.7 10 ^3/uL (0.4-5.4); Lymphocytes % (auto) 20.8 % (10.0-50.0); Mean Corpuscular Hemoglobin 29.6 pg (28.0-32.0); Mean Corpuscular Hgb Conc. 34.2 g/dL (32.0-36.0); Mean Corpuscular Volume 86.6 fL (80.0-100.0); Monocytes # (auto) 0.6 10 ^3/uL (0-1.3); Monocytes % (auto) 7.6 % (0.0-12.0); Neutrophils # (auto) 5.6 10 ^3/uL (1.6-8.6); Neutrophils % (auto) 66.8 % (37.0-80.0); Platelet Count (auto) 364 10^3/uL (140-450); Red Cell Distribution Width 14.6 % (11.8-14.3); White Blood Cell 8.3 10^3/uL (4.4-10.8)
[2020-03-25 09:10] LABS: Alanine Aminotransferase 18 U/L (13-56); Albumin 3.2 g/dL (3.4-5.0); Anion Gap 5 (5-15); Blood Urea Nitrogen 14 mg/dL (7-18); Calcium 9.2 mg/dL (8.5-10.1); Carbon Dioxide 28 mmol/L (21-32); Chloride 106 mmol/L (98-107); Glucose 114 mg/dL (74-106); Magnesium 2.3 mg/dL (1.6-2.6); Potassium 3.9 mmol/L (3.5-5.1); Sodium 139 mmol/L (136-145)
[2020-03-25 09:14] LABS: INR 0.99 (0.9-1.15); Partial Thromboplastin Time 27.3 sec (23.64-32.05)
[2020-03-25 09:15] LABS: Alkaline Phosphatase 65 U/L (45-117); Aspartate Aminotransferase 12 U/L (15-37); BUN/Creatinine Ratio 10.3; Bilirubin, Total 0.4 mg/dL (0.2-1.0); GFR African American 49 mL/min; GFR Non-African American 41 mL/min; Total Protein 6.9 g/dL (6.4-8.2)
[2020-03-25] MEDS ORDERED: EPINEPHrine HCL 0.5 ML NEB NEB ONE (09:30)
[2020-03-25] MEDS ORDERED: FUROSEMIDE 40 MG/4 ML VIAL IV ONE (10:00)
[2020-03-25] MEDS ORDERED: IPRATROPIUM BROM 0.5 MG/2.5ML INH SOL NEB ONE (11:15)
[2020-03-25] MEDS ORDERED: ALBUTEROL SULF 2.5 MG/0.5ML(0.5%) NEB SOLN NEB ONE (11:15)
[2020-03-25 11:24] LABS: Urine Bacteria FEW /hpf (None Seen); Urine Blood Negative /uL (Negative); Urine Specific Gravity 1.011 (1.001-1.035); Urine WBC 17 /hpf (0 - 5)
[2020-03-25] MEDS ORDERED: cefTRIAXone 1GM/50ML D5W 50 ML IV ONE (12:15)
[2020-03-25] MEDS ORDERED: MORPHINE SULF INJ 2 MG/ML SYRINGE 1ML IV PRN (16:00)
[2020-03-25] MEDS ORDERED: DexAMETHasone SOD PHOS 4 MG/1ML SDV INJ IV ONE (16:00)
[2020-03-25] MEDS ORDERED: NITROGLYCERIN 0.4 MG SL TAB SL PRN (16:00)
[2020-03-25] MEDS: FUROSEMIDE 20 MG/2 ML VIAL IV SCH (17:33)
[2020-03-25] MEDS ORDERED: DexAMETHasone SOD PHOS 4 MG/1ML SDV INJ IV SCH (18:00)
[2020-03-25 18:02] VITALS: BP 150/66
[2020-03-25] MEDS: ALBUTEROL SULF 2.5 MG/0.5ML(0.5%) NEB SOLN NEB SCH ×2 (18:02→22:00)
[2020-03-25] MEDS: IPRATROPIUM BROM 0.5 MG/2.5ML INH SOL NEB SCH ×2 (18:02→22:00)
--- NOTE | 2020-03-25 18:25 | NUR ---
Respiratory note: PER PT REQUEST TO COME OFF BIPAP. PT PLACED ON NC2L AND MAINTAINING SPO2 92-94%. PT IS AWAKE AND ALERT. MADE PT AWARE IF HER SPO2 DROPS THAT SHE WILL GO BACK ON BIPAP FOR THE NIGHT. BS DIM WITH FAINT FINE CRACKLES. WILL CONTINUE TO MONITOR PT T/O SHIFT.
--- NOTE | 2020-03-25 22:00 | NUR ---
Respiratory note: MEDICATION HELD DUE TO PT BEING ON AIRBORNE PRECAUTIONS AND NOT IN NEGATIVE PRESSURE ROOM. RN AWARE AND AGREES WITH DECISION. PT REMAINS ON NC2L. SPO2 92, HR 90, RR 22. BS DIM WITH FAINT CRACKLES AT BASES. PT IS NOT SOB AT THIS TIME.
[2020-03-25] MEDS: methylPREDNISolone SOD SUCC 40 MG/ML VL IV SCH (22:12)
[2020-03-26] VITALS (8 sets, daily range): BP systolic 136–157; BP diastolic 52–77
[2020-03-26] MEDS ORDERED: SODIUM CHLORIDE 0.9% 1,000 ML IV SCH
[2020-03-26] MEDS ORDERED: hydrALAZINE HCL 20 MG/ML VL IV PRN (00:15)
[2020-03-26] MEDS ORDERED: DOCUSATE SOD 100 MG CAP PO PRN (00:30)
[2020-03-26] MEDS ORDERED: LORazepam 0.5 MG TAB PO PRN (00:30)
[2020-03-26] MEDS ORDERED: HYDROcodone-ACET 5/325MG TAB PO PRN (00:30)
[2020-03-26] MEDS ORDERED: NITROGLYCERIN 0.4 MG SL TAB SL PRN (00:30)
[2020-03-26] MEDS ORDERED: ONDANSETRON HCL 4 MG/2 ML VIAL IV PRN (00:30)
[2020-03-26] MEDS ORDERED: ALUM & MAG HYDROX-SIMETH LIQ(MAALOX) 30 ML PO PRN (00:30)
[2020-03-26] MEDS ORDERED: MORPHINE SULF INJ 2 MG/ML SYRINGE 1ML IV PRN ×2 (00:30)
[2020-03-26] MEDS: ALBUTEROL SULF 2.5 MG/0.5ML(0.5%) NEB SOLN NEB SCH ×6 (01:07→22:25)
[2020-03-26] MEDS: IPRATROPIUM BROM 0.5 MG/2.5ML INH SOL NEB SCH ×6 (01:07→23:46)
--- NOTE | 2020-03-26 04:00 | NUR ---
Telemetry admit from ER SHELBY LUGO admitted to Telemetry unit after SBAR received. Patient oriented to Lana George RN primary RN, unit, room, bed, and unit policies regarding patient care and visiting hours. Patient now on continuous telemetry monitoring, tele box # and telemetry reading on arrival to unit is SR. Patient placed on bedside oxygen at 2 Lpm/NC, weighed by bedscale and encouraged to call if they need something. All questions and concerns addressed, patient verbalized understanding, will continue to monitor Note: []
--- NOTE | 2020-03-26 04:45 | NUR ---
Patient complained of chest pain 8/10, burning in sensation. Chest pain protocol done, EKG attached to chart, maintained O2, will continue to monitor
--- NOTE | 2020-03-26 05:00 | NUR ---
Reassessed chest pain and per patient, chest pain relieved, will continue to monitor
[2020-03-26] MEDS: hydrALAZINE HCL 25 MG TAB PO SCH ×3 (06:00→22:00)
[2020-03-26] MEDS: FUROSEMIDE 20 MG/2 ML VIAL IV SCH (06:32)
[2020-03-26] MEDS: methylPREDNISolone SOD SUCC 40 MG/ML VL IV SCH ×3 (06:33→21:52)
--- NOTE | 2020-03-26 06:33 | NUR ---
Patient refused Hydralazine med at this time. Per patient, she takes it only if BP is SBP > 165
[2020-03-26] MEDS ORDERED: AMLO5TAB15 PO (06:36)
[2020-03-26 07:46] LABS: Amphetamine Screen, Urine NEGATIVE (NEGATIVE); Barbiturate Scree,Urine NEGATIVE (NEGATIVE); Benzodiazephine Screen, Urine NEGATIVE (NEGATIVE); Cocaine Screen, Urine NEGATIVE (NEGATIVE); Opiate Scree,Urine NEGATIVE (NEGATIVE); Phencyclidine Screen, Urine NEGATIVE (NEGATIVE)
[2020-03-26 07:47] LABS: Alcohol, Urine < 3.0 mg/dL (0-10)
[2020-03-26 07:54] LABS: Cannabinoid Screen, Urine POSITIVE (NEGATIVE)
--- NOTE | 2020-03-26 08:00 | NUR ---
Received pt resting in bed, call light within reach, no pain reported at this time, will continue to monitor pt.
[2020-03-26] MEDS ORDERED: cefTRIAXone 1GM/50ML D5W 50 ML IV SCH (09:00)
[2020-03-26 09:03] LABS: Basophils # (auto) 0 10 ^3/uL (0-0.2); Basophils % (auto) 0.1 % (0.0-2.0); Eosinophils # (auto) 0 10 ^3/uL (0-0.8); Hematocrit 36.8 % (36.0-46.0); Hemoglobin 12.1 g/dL (12.2-16.2); Lymphocytes # (auto) 0.5 10 ^3/uL (0.4-5.4); Lymphocytes % (auto) 5.2 % (10.0-50.0); Mean Corpuscular Hemoglobin 28.4 pg (28.0-32.0); Mean Corpuscular Hgb Conc. 32.9 g/dL (32.0-36.0); Mean Corpuscular Volume 86.3 fL (80.0-100.0); Monocytes # (auto) 0.2 10 ^3/uL (0-1.3); Monocytes % (auto) 1.6 % (0.0-12.0); Neutrophils # (auto) 9.3 10 ^3/uL (1.6-8.6); Neutrophils % (auto) 93.1 % (37.0-80.0); Platelet Count (auto) 351 10^3/uL (140-450); Red Blood Cells 4.26 10^6/uL (4.0-5.20); Red Cell Distribution Width 14.5 % (11.8-14.3)
[2020-03-26 09:19] LABS: Albumin 3.3 g/dL (3.4-5.0); Anion Gap 7 (5-15); Blood Urea Nitrogen 26 mg/dL (7-18); Calcium 8.8 mg/dL (8.5-10.1); Carbon Dioxide 26 mmol/L (21-32); Chloride 106 mmol/L (98-107); Glucose 158 mg/dL (74-106); Magnesium 2.4 mg/dL (1.6-2.6); Potassium 3.7 mmol/L (3.5-5.1); Sodium 139 mmol/L (136-145)
[2020-03-26 09:23] LABS: INR 1.01 (0.9-1.15); Partial Thromboplastin Time 26.5 sec (23.64-32.05)
[2020-03-26 09:27] LABS: Alanine Aminotransferase 19 U/L (13-56); Alkaline Phosphatase 63 U/L (45-117); Aspartate Aminotransferase 7 U/L (15-37); BUN/Creatinine Ratio 17.7; Bilirubin, Total 0.3 mg/dL (0.2-1.0); GFR African American 45 mL/min; GFR Non-African American 37 mL/min; Phosphorus 3.6 mg/dL (2.5-4.90)
[2020-03-26] MEDS: ENOXAPARIN SOD 40 MG/0.4 ML SYRINGE SC SCH (10:00)
[2020-03-26 10:17] LABS: Cholesterol 223 mg/dL (< 200); HDL Cholesterol 54 mg/dL (40-59); LDL Cholesterol 167 mg/dL (< 100); Triglycerides 67 mg/dL (< 150)
--- NOTE | 2020-03-26 10:30 | NUR ---
Dr. Dhillon / pulerica at unit to see pt, doctor ordered CXR for tomorrow.
[2020-03-26] MEDS: METOPROLOL SUCCINATE XL 50 MG TAB PO SCH (10:39)
[2020-03-26] MEDS: ASPirin 81 mg TAB PO SCH (10:39)
[2020-03-26] MEDS: AZITHROMYCIN 500MG/ 250ML 250 ML IV SCH (10:41)
[2020-03-26] MEDS ORDERED: ALBU108A5 IN (16:01)
[2020-03-26] MEDS ORDERED: AMLO10TA13 PO (16:01)
[2020-03-26] MEDS ORDERED: amLODIPine BESYLATE 5 MG TAB PO ONE (17:00)
--- NOTE | 2020-03-27 00:02 | NUR ---
Mee Hood, RN, [employer], hospitalist, paged re. request of RT as Dr. Dhillon noted that would start Lasix 40mg q day but did not order it and pt SOB earlier. RT also requesting med for anxiety. had noted that pt has recorded allergy to lorazepam, but did not order any other med.
--- NOTE | 2020-03-27 00:40 | NUR ---
Dr. Weinberg paged re. poss. lasix order and med for anxiety; message left on answering machine.
--- NOTE | 2020-03-27 01:33 | NUR ---
Second page to Dr. Weinberg as no answer from prev. page.
--- NOTE | 2020-03-27 01:34 | NUR ---
Paging RT for tx for pt.
--- NOTE | 2020-03-27 01:52 | NUR ---
Pt sitting up right in bed, tripod position with resp moving upper body forward and backward. O2 sat on 1lpm 87-88. O2 increased to 2lpm with O2 sat increasing to 90.
--- NOTE | 2020-03-27 02:11 | NUR ---
RT at bedside.
[2020-03-27] MEDS: ALBUTEROL SULF 2.5 MG/0.5ML(0.5%) NEB SOLN NEB SCH ×6 (02:47→22:17)
[2020-03-27] MEDS: IPRATROPIUM BROM 0.5 MG/2.5ML INH SOL NEB SCH ×6 (02:47→22:17)
[2020-03-27] MEDS: methylPREDNISolone SOD SUCC 40 MG/ML VL IV SCH ×3 (05:44→22:24)
[2020-03-27 06:00] VITALS: BP 137/79
[2020-03-27] MEDS: hydrALAZINE HCL 25 MG TAB PO SCH ×3 (06:00→22:00)
--- NOTE | 2020-03-27 07:30 | NUR ---
Opening Shift Note Assumed care of patient, awake and alert, A&Ox4. Patient found sitting up in bed with no S/S of distress. Patient on 2L via NC, O2 sat at 93%. No pain at this time. Safety measures were maintained by keeping the bed at the lowest position, side rails up, items and call light within reach. Patient instructed on POC and to call for assist PRN, will continue to monitor for changes Q1hr and PRN.
[2020-03-27 08:00] VITALS: BP 154/89
[2020-03-27 09:00] VITALS: BP 154/89
[2020-03-27] MEDS: ENOXAPARIN SOD 40 MG/0.4 ML SYRINGE SC SCH (10:00)
[2020-03-27] MEDS: ASPirin 81 mg TAB PO SCH (10:30)
[2020-03-27] MEDS: METOPROLOL SUCCINATE XL 50 MG TAB PO SCH (10:31)
[2020-03-27] MEDS: amLODIPine BESYLATE 5 MG TAB PO SCH (10:32)
[2020-03-27] MEDS: AZITHROMYCIN 500MG/ 250ML 250 ML IV SCH (10:32)
[2020-03-27] MEDS: FUROSEMIDE 20 MG/2 ML VIAL IV SCH (11:09)
[2020-03-27] MEDS: ALPRAZolam 0.25 MG TAB PO PRN (12:32)
[2020-03-27 13:00] VITALS: BP 146/78
[2020-03-27] MEDS ORDERED: methylPREDNISolone SOD SUCC 125 MG/2 ML VL IV ONE (14:00)
[2020-03-27] MEDS ORDERED: CLINDAMYCIN 600MG IV 50 ML IV SCH (14:00)
[2020-03-27] MEDS: MEROPENEM 1GM IVPB 100 ML IV SCH (16:30)
[2020-03-27 16:44] VITALS: BP 135/77
--- NOTE | 2020-03-27 19:30 | NUR ---
Opening Shift Note Assumed care of patient, sleeping in upright position with n/c prongs almost completely out of nares. No S/S of distress. Pt does have increased WOB. Pt wakened spont; upon being informed about her n/c, pt states she removed it because her O2 sat went to 95. Instructed on POC and to call for assist PRN. RN spoke with pt about her condition. Pt again refering to taking meds as at home. RN reminded her that she is too sick to be at home, and if that tx was successful at this time, we could send her home. Pt admitted this to be true. This RN will continue to monitor for changes Q1hr and PRN.
[2020-03-27 22:00] VITALS: BP 133/71
[2020-03-27] MEDS: HYDROCORTISONE ACET 25 MG RECTAL SUPP PR SCH (22:25)
[2020-03-28] VITALS (7 sets, daily range): BP systolic 125–151; BP diastolic 72–82
[2020-03-28] MEDS: ALBUTEROL SULF 2.5 MG/0.5ML(0.5%) NEB SOLN NEB SCH ×6 (02:20→22:00)
[2020-03-28] MEDS: IPRATROPIUM BROM 0.5 MG/2.5ML INH SOL NEB SCH ×6 (02:20→22:00)
[2020-03-28] MEDS: MEROPENEM 1GM IVPB 100 ML IV SCH ×2 (03:00→16:13)
[2020-03-28 06:21] LABS: Basophils # (auto) 0 10 ^3/uL (0-0.2); Basophils % (auto) 0.1 % (0.0-2.0); Eosinophils # (auto) 0.1 10 ^3/uL (0-0.8); Eosinophils % (auto) 0.8 % (0.0-7.0); Hemoglobin 12.2 g/dL (12.2-16.2); Lymphocytes # (auto) 0.4 10 ^3/uL (0.4-5.4); Lymphocytes % (auto) 3.3 % (10.0-50.0); Mean Corpuscular Hemoglobin 28.2 pg (28.0-32.0); Mean Corpuscular Hgb Conc. 32.9 g/dL (32.0-36.0); Mean Corpuscular Volume 85.7 fL (80.0-100.0); Monocytes # (auto) 0.3 10 ^3/uL (0-1.3); Monocytes % (auto) 2.1 % (0.0-12.0); Neutrophils # (auto) 11.8 10 ^3/uL (1.6-8.6); Neutrophils % (auto) 93.7 % (37.0-80.0); Nucleated Red Blood Cells % 0.1 %; Platelet Count (auto) 364 10^3/uL (140-450); Red Blood Cells 4.32 10^6/uL (4.0-5.20); Red Cell Distribution Width 14.9 % (11.8-14.3); White Blood Cell 12.6 10^3/uL (4.4-10.8)
[2020-03-28 06:33] LABS: Potassium 4.3 mmol/L (3.5-5.1)
[2020-03-28 06:41] LABS: BUN/Creatinine Ratio 30.3; Magnesium 2.8 mg/dL (1.6-2.6)
[2020-03-28] MEDS: methylPREDNISolone SOD SUCC 40 MG/ML VL IV SCH ×3 (06:42→21:45)
[2020-03-28] MEDS: hydrALAZINE HCL 25 MG TAB PO SCH ×3 (06:47→21:45)
--- NOTE | 2020-03-28 07:30 | NUR ---
Opening Shift Note Assumed care of patient, awake and alert. A&OX4 Patient sitting up in bed, continuous monitoring of O2 sat. ranges from 91-91%. No S/S of distress or pain. Safety maintained with bed in lowest position, 2 side rails up, items and call light within reach. Instructed on POC and to call for assist PRN, will continue to monitor for changes Q1hr and PRN.
[2020-03-28] MEDS: ENOXAPARIN SOD 40 MG/0.4 ML SYRINGE SC SCH (10:00)
[2020-03-28] MEDS ORDERED: ALPRAZolam 0.25 MG TAB PO ONE (10:00)
[2020-03-28] MEDS: FUROSEMIDE 20 MG/2 ML VIAL IV SCH (10:00)
[2020-03-28] MEDS ORDERED: AZITHROMYCIN 250 MG TAB PO SCH (10:00)
--- NOTE | 2020-03-28 10:24 | NUR ---
PHYSICAL THERAPY BONNIE FOR SAFETY PT ALSO PROVIDED A LONGER NASAL CANULA FOR WHEN SHE WANTS TO TRY TO WALK TO THE BATHROOM USING A WALKER.
[2020-03-28] MEDS: METOPROLOL SUCCINATE XL 50 MG TAB PO SCH (10:49)
[2020-03-28] MEDS: amLODIPine BESYLATE 5 MG TAB PO SCH (10:50)
[2020-03-28] MEDS: ASPirin 81 mg TAB PO SCH (10:50)
--- NOTE | 2020-03-28 12:45 | NUR ---
Nutrition Assessment Notes Please see attached link for complete assessment. Est. Energy Needs BW 76 [id number] kcal (23-25 kcal/kg BW), Est. Protein Needs: 45-61 gms/day (0.6-0.8 gms/kgBW r/t elev RFT).Will continue to monitor and reassess prn. Addendum: 03/28/20 at [address] Amended: Links added.
[2020-03-28] MEDS: HYDROCORTISONE ACET 25 MG RECTAL SUPP PR SCH ×2 (12:54→21:46)
[2020-03-28] MEDS: AZITHROMYCIN 500MG/ 250ML 250 ML IV SCH (14:36)
--- NOTE | 2020-03-28 15:28 | NUR ---
assessment Patient is a 69 year old female who is alert and oriented. Prior to admission patient lived home with family and functioned with assistance. Per patient she will return home to her prior living arrangements post discharge and family will transport her home. Patient has a fww, 02, and nebulizer for home use. Patient informed me she has been admitted for COPD exacerbation. Patient has no safety issues in regards to returning home on discharge. I will continue to monitor and follow up as appropriate. I informed patient she has a right to speak to a medical social consultant regarding all care. I informed patient she has a right to participate in any and all discharge planning. Patient does not have a POA and advanced directive. I have offered patient information on POA and advanced directives. I informed the patient the advantages and benefits of having an Advanced Directive. Patient verbalized understanding and agreed to discharge plan. Addendum: 03/28/20 at 1541 by Neeru KAUR Amended: Links added.
[2020-03-28] MEDS ORDERED: FUROSEMIDE 20 MG/2 ML VIAL IV ONE (16:15)
[2020-03-29] MEDS: ALBUTEROL SULF 2.5 MG/0.5ML(0.5%) NEB SOLN NEB SCH ×6 (02:04→22:56)
[2020-03-29] MEDS: IPRATROPIUM BROM 0.5 MG/2.5ML INH SOL NEB SCH ×6 (02:04→22:56)
[2020-03-29] MEDS: MEROPENEM 1GM IVPB 100 ML IV SCH ×2 (03:24→14:33)
[2020-03-29 05:00] VITALS: BP 144/79
[2020-03-29] MEDS: hydrALAZINE HCL 25 MG TAB PO SCH ×3 (05:43→21:50)
[2020-03-29] MEDS: methylPREDNISolone SOD SUCC 40 MG/ML VL IV SCH ×3 (05:44→21:50)
[2020-03-29 09:00] VITALS: BP 144/81
[2020-03-29] MEDS: ENOXAPARIN SOD 40 MG/0.4 ML SYRINGE SC SCH (09:00)
[2020-03-29] MEDS: AZITHROMYCIN 500MG/ 250ML 250 ML IV SCH (09:02)
[2020-03-29] MEDS: HYDROCORTISONE ACET 25 MG RECTAL SUPP PR SCH ×2 (09:03→21:51)
[2020-03-29] MEDS: ASPirin 81 mg TAB PO SCH (09:03)
[2020-03-29] MEDS: METOPROLOL SUCCINATE XL 50 MG TAB PO SCH (09:03)
[2020-03-29] MEDS: amLODIPine BESYLATE 5 MG TAB PO SCH (09:04)
--- NOTE | 2020-03-29 09:40 | NUR ---
Opening Shift Note Assumed care of patient, awake and alert. A&OX4 Patient sitting up in bed, continuous monitoring of O2 sat. ranges from 90-92% WITH 1L NC. No S/S of distress or pain. Safety maintained with bed in lowest position, 2 side rails up, items and call light within reach. Instructed on POC and to call for assist PRN, will continue to monitor for changes Q1hr and PRN. Addendum: 03/29/20 at 0940 by TYLER BENSON RN RN CORRECT TIME 0748
[2020-03-29] MEDS: ALPRAZolam 0.25 MG TAB PO PRN (11:12)
[2020-03-29 13:00] VITALS: BP 135/80
[2020-03-29 17:00] VITALS: BP 153/76
[2020-03-29] MEDS: ATORVASTATIN 20 MG TAB PO SCH (21:51)
[2020-03-29 22:00] VITALS: BP 149/78
[2020-03-30] MEDS: ALBUTEROL SULF 2.5 MG/0.5ML(0.5%) NEB SOLN NEB SCH ×6 (02:32→22:05)
[2020-03-30] MEDS: IPRATROPIUM BROM 0.5 MG/2.5ML INH SOL NEB SCH ×6 (02:32→22:05)
[2020-03-30] MEDS: MEROPENEM 1GM IVPB 100 ML IV SCH (03:17)
[2020-03-30 05:00] VITALS: BP 154/81
[2020-03-30] MEDS: hydrALAZINE HCL 25 MG TAB PO SCH ×3 (06:00→22:00)
[2020-03-30] MEDS: methylPREDNISolone SOD SUCC 40 MG/ML VL IV SCH (06:30)
--- NOTE | 2020-03-30 08:00 | NUR ---
OPENING SHIFT NOTE ASSUMED CARE OF PATIENT AWAKE AND ALERT. PATIENT IS SOB AT REST, CURRENTLY ON 1L NC SATURATING AT 92%. NO COMPLAINTS OF PAIN. PATIENT UPDATED ON POC FOR THE DAY AND ALL QUESTIONS ANSWERED. BED IS IN LOWEST, LOCKED POSITION WITH SIDE RAILS UP X2 AND CALL LIGHT WITHIN REACH. WILL CONTINUE TO MONITOR Q1H AND PRN.
[2020-03-30 09:00] VITALS: BP 143/74
[2020-03-30] MEDS: AZITHROMYCIN 500MG/ 250ML 250 ML IV SCH (09:14)
[2020-03-30] MEDS: ASPirin 81 mg TAB PO SCH (09:14)
[2020-03-30] MEDS: ENOXAPARIN SOD 40 MG/0.4 ML SYRINGE SC SCH (09:15)
[2020-03-30] MEDS: amLODIPine BESYLATE 5 MG TAB PO SCH (09:15)
[2020-03-30] MEDS: METOPROLOL SUCCINATE XL 50 MG TAB PO SCH (09:15)
[2020-03-30] MEDS: HYDROCORTISONE ACET 25 MG RECTAL SUPP PR SCH ×2 (09:15→22:25)
[2020-03-30] MEDS: ALPRAZolam 0.25 MG TAB PO PRN (09:16)
--- NOTE | 2020-03-30 10:30 | NUR ---
PHYSICAL THERAPY PATIENT AMBULATING WITH PHYSICAL THERAPY
--- NOTE | 2020-03-30 11:24 | NUR ---
Tran catheter dc'd Order to discontinue tran catheter. Tran dc'd with clean technique following deflation of balloon. Patient tolerated well with no complaints of pain. Continue care.
[2020-03-30] MEDS ORDERED: predniSONE 20 MG TAB PO ONE (12:15)
[2020-03-30] MEDS ORDERED: AZITHROMYCIN 250 MG TAB PO ONE (12:30)
[2020-03-30 13:00] VITALS: BP 132/77
[2020-03-30 17:00] VITALS: BP 140/93
--- NOTE | 2020-03-30 19:20 | NUR ---
Opening Shift Note Assumed care of patient, awake and alert. No S/S of distress/SOB or pain. Bed in lowest locked position, side rails up x2, call light within reach. Instructed on POC and to call for assist PRN, will continue to monitor for changes Q1hr and PRN.
[2020-03-30] MEDS: ATORVASTATIN 20 MG TAB PO SCH (22:00)
[2020-03-30 22:12] VITALS: BP 153/79
[2020-03-31] MEDS: ALPRAZolam 0.25 MG TAB PO PRN ×2 (01:29→15:00)
[2020-03-31] MEDS: IPRATROPIUM BROM 0.5 MG/2.5ML INH SOL NEB SCH ×4 (02:06→14:29)
[2020-03-31] MEDS: ALBUTEROL SULF 2.5 MG/0.5ML(0.5%) NEB SOLN NEB SCH ×4 (02:06→14:30)
[2020-03-31] MEDS: hydrALAZINE HCL 25 MG TAB PO SCH ×2 (05:04→14:00)
[2020-03-31 05:25] VITALS: BP 157/86
--- NOTE | 2020-03-31 06:38 | NUR ---
Closing Note Patient lying in bed, eyes closed, respirations even and unlabored, appears asleep. Patient awakens to name and touch. No s/s of distress. Call light within reach. Will endorse care to dayshift RN.
--- NOTE | 2020-03-31 08:00 | NUR ---
OPENING SHIFT NOTE ASSUMED CARE OF PATIENT AWAKE AND ALERT. NO S/S OF DISTRESS NOTED BUT PATIENT IS SOB AT REST. PATIENT IS ON 1L NC WITH AN OXYGEN SATURATION OF 93%. PATIENT UPDATED ON POC FOR THE DAY AND ALL QUESTIONS ANSWERED. BED IS IN LOWEST, LOCKED POSITION WITH SIDE RAILS UP X2 AND CALL LIGHT WITHIN REACH. WILL CONTINUE TO MONITOR Q1H AND PRN.
[2020-03-31 09:12] VITALS: BP 145/70
[2020-03-31] MEDS: ASPirin 81 mg TAB PO SCH (09:35)
[2020-03-31] MEDS: amLODIPine BESYLATE 5 MG TAB PO SCH (09:35)
[2020-03-31] MEDS: METOPROLOL SUCCINATE XL 50 MG TAB PO SCH (09:35)
[2020-03-31] MEDS: HYDROCORTISONE ACET 25 MG RECTAL SUPP PR SCH (09:36)
[2020-03-31] MEDS: ENOXAPARIN SOD 40 MG/0.4 ML SYRINGE SC SCH (09:36)
[2020-03-31] MEDS ORDERED: AZITHROMYCIN 250 MG TAB PO SCH (10:00)
[2020-03-31] MEDS ORDERED: predniSONE 20 MG TAB PO SCH (10:00)
[2020-03-31 13:31] VITALS: BP 154/77
--- NOTE | 2020-03-31 13:45 | NUR ---
AT BEDSIDE DR CRUZ AT BEDSIDE DISCUSSING POC WITH PATIENT
--- NOTE | 2020-03-31 14:40 | NUR ---
PRESCRIPTIONS NEW PRESCRIPTIONS CALLED IN TO PATIENT'S PHARMACY: CIPRO, PREDNISONE, AND ZITHROMAX
--- NOTE | 2020-03-31 15:15 | NUR ---
Discharge instructions given as ordered. Encourage to follow up with PMD as instructed. All questions and concerns addressed. Patient verbalized understanding. IV removed with catheter intact, pressure dressing applied. Telemetry unit returned to ICU. Patient taken to vehicle via wheelchair with all personal belongings, accompanied by staff. No distress noted at time of departure.
== END 2020-03-31 17:15 | disposition home or self-care (01) | DRG 193 ==
LOC: EDBD 08:11 → ER 08:11 → TELE 08:12 → TELE-WESTW 03-26 03:14
PROVIDERS: ADMIT Hospitalist; ATTEND Internal Medicine Geriatric Medicine
PROC: 5A09357 Assistance with Respiratory Ventilation, Less than 24 Consecutive Hours, Continuous Positive Airway Pressure (ICD-10-PCS; principal; 2020-03-25)
PROC: 5A09357 Assistance with Respiratory Ventilation, Less than 24 Consecutive Hours, Continuous Positive Airway Pressure (ICD-10-PCS; 2020-03-26)
DX: J15.9 Unspecified bacterial pneumonia (principal); J96.20 Acute and chronic respiratory failure, unspecified whether with hypoxia or hypercapnia; I50.43 Acute on chronic combined systolic (congestive) and diastolic (congestive) heart failure; I13.0 Hypertensive heart and chronic kidney disease with heart failure and stage 1 through stage 4 chronic kidney disease, or unspecified chronic kidney disease; J44.0 Chronic obstructive pulmonary disease with (acute) lower respiratory infection; E44.1 Mild protein-calorie malnutrition; I16.9 Hypertensive crisis, unspecified; J44.1 Chronic obstructive pulmonary disease with (acute) exacerbation; N39.0 Urinary tract infection, site not specified; I50.82 Biventricular heart failure; N18.3 Chronic kidney disease, stage 3 (moderate); E78.5 Hyperlipidemia, unspecified; R73.9 Hyperglycemia, unspecified; R80.9 Proteinuria, unspecified; Z20.828 Contact with and (suspected) exposure to other viral communicable diseases; F41.9 Anxiety disorder, unspecified; I25.10 Atherosclerotic heart disease of native coronary artery without angina pectoris; Z79.82 Long term (current) use of aspirin; Z87.891 Personal history of nicotine dependence; Z68.28 Body mass index [BMI] 28.0-28.9, adult; Z99.81 Dependence on supplemental oxygen; Z91.041 Radiographic dye allergy status; Z95.1 Presence of aortocoronary bypass graft; Z83.3 Family history of diabetes mellitus; Z88.8 Allergy status to other drugs, medicaments and biological substances; Z88.1 Allergy status to other antibiotic agents
CPT/HCPCS: 36415; 36600; 71045; 80048; 80053; 80061; 80307; 81001; 81015; 82805; 83036; 83735; 83880; 84100; 84484; 85025; 85610; 85730; 87040; 87086; 87088; 87186; 94640; 94660; 96361; 96365; 96375; 99291; G0378; J0696; J2185; J3490

== ENCOUNTER 2021-01-26 06:28 | Inpatient (IN) | payer OTHER ==
[~2021-01-26] VITALS: Ht 167.6 cm; Wt 70.4 kg
[~2021-01-26 06:28] MED LIST changes: -ALBU0.5N2 IN; +ALBU108A5 IN; +AMLO-496 PO; -AMLO5TAB15 PO; -METO-169 PO; +METO-289 PO
[2021-01-26] MEDS ORDERED: methylPREDNISolone SOD SUCC 125 MG/2 ML VL IV ONE (06:30)
[2021-01-26] MEDS ORDERED: ALBUTEROL SULF 2.5 MG/0.5ML(0.5%) NEB SOLN HHN ONE (06:30)
[2021-01-26] MEDS ORDERED: IPRATROPIUM BROM 0.5 MG/2.5ML INH SOL HHN ONE (06:30)
[2021-01-26 06:45] VITALS: BP 199/110
[2021-01-26] MEDS ORDERED: FUROSEMIDE 40 MG/4 ML VIAL IV ONE (06:45)
[2021-01-26] MEDS ORDERED: AMIODARONE HCL 150 MG in D5W 5% 100 ML IV ONE (06:45)
[2021-01-26] MEDS ORDERED: AMIODARONE 450mg/250ml AE 250 ML IV SCH (06:45)
[2021-01-26 07:19] LABS: Basophils # (auto) 0.1 10 ^3/uL (0-0.2); Basophils % (auto) 1.5 % (0.0-2.0); Eosinophils % (auto) 11.5 % (0.0-7.0); Hematocrit 45.2 % (36.0-46.0); Hemoglobin 14.8 g/dL (12.2-16.2); Lymphocytes % (auto) 35.8 % (10.0-50.0); Mean Corpuscular Hemoglobin 27.6 pg (28.0-32.0); Mean Corpuscular Hgb Conc. 32.7 g/dL (32.0-36.0); Mean Corpuscular Volume 84.5 fL (80.0-100.0); Monocytes # (auto) 0.8 10 ^3/uL (0-1.3); Monocytes % (auto) 9.6 % (0.0-12.0); Neutrophils # (auto) 3.4 10 ^3/uL (1.6-8.6); Neutrophils % (auto) 41.6 % (37.0-80.0); Nucleated Red Blood Cells % 0.1 %; Red Blood Cells 5.35 10^6/uL (4.0-5.20); Red Cell Distribution Width 16.5 % (11.8-14.3); White Blood Cell 8.3 10^3/uL (4.4-10.8)
[2021-01-26 07:29] LABS: Albumin 3.7 g/dL (3.4-5.0); Anion Gap 8 (5-15); Blood Urea Nitrogen 19 mg/dL (7-18); Calcium 9.3 mg/dL (8.5-10.1); Carbon Dioxide 29 mmol/L (21-32); Chloride 98 mmol/L (98-107); Glucose 202 mg/dL (74-106); Potassium 4.5 mmol/L (3.5-5.1); Sodium 135 mmol/L (136-145)
[2021-01-26 07:32] LABS: BUN/Creatinine Ratio 14.1; GFR African American 50 mL/min; GFR Non-African American 41 mL/min
[2021-01-26 07:34] LABS: Aspartate Aminotransferase 19 U/L (15-37); Total Protein 7.4 g/dL (6.4-8.2)
[2021-01-26 07:44] LABS: Alanine Aminotransferase 23 U/L (13-56); Alkaline Phosphatase 77 U/L (45-117); Bilirubin, Total 0.5 mg/dL (0.2-1.0)
[2021-01-26] MEDS ORDERED: FLUT50SP NAS (08:43)
[2021-01-26] MEDS ORDERED: ALPR0.255 PO (08:43)
[2021-01-26] MEDS ORDERED: FUR20T PO (08:43)
[2021-01-26] MEDS ORDERED: NITR0.4S29 (08:43)
[2021-01-26] MEDS ORDERED: HYDR-4072 (08:43)
[2021-01-26] MEDS ORDERED: IPRA0.00 (08:43)
[2021-01-26] MEDS ORDERED: HYDR25TA87 PO (08:43)
[2021-01-26] MEDS ORDERED: CETI-120 PO (08:43)
[2021-01-26] MEDS ORDERED: NITROGLYCERIN 0.4 MG SL TAB SL PRN ×3 (08:45→09:15)
[2021-01-26] MEDS ORDERED: MORPHINE SULFATE INJECTION 2 MG/ML SYRG IV PRN ×3 (08:45→09:15)
[2021-01-26] MEDS ORDERED: LACTATED RINGER'S 1,000 ML IV ONE (09:00)
[2021-01-26] MEDS ORDERED: LABETALOL HCL 5 MG/ML 4ML SYRINGE IV ONE (09:15)
[2021-01-26] MEDS ORDERED: NIFEdipine ER 30 MG TAB PO ONE (09:15)
[2021-01-26] MEDS ORDERED: MAGNESIUM SULFATE 1GM/100ML 100 ML IV ONE (09:15)
[2021-01-26] MEDS ORDERED: SODIUM CHLORIDE 0.9% 1,000 ML IV SCH (09:15)
[2021-01-26] MEDS ORDERED: ONDANSETRON HCL 4 MG/2 ML VIAL IV PRN (09:15)
[2021-01-26] MEDS ORDERED: DEXTROSE (50%) 50ML SYRG IV PRN (09:15)
[2021-01-26] MEDS ORDERED: METOPROLOL TARTRATE 1MG/1ML-5ML VIAL IV PRN (09:15)
[2021-01-26] MEDS ORDERED: HYDROcodone-ACET 5/325MG TAB PO PRN (09:15)
[2021-01-26] MEDS ORDERED: cefTRIAXone 1GM/50ML D5W 50 ML IV ONE (09:15)
[2021-01-26] MEDS ORDERED: ALPRAZolam 0.25 MG TAB PO PRN (09:15)
[2021-01-26] MEDS ORDERED: ATORVASTATIN 20 MG TAB PO ONE (09:15)
[2021-01-26] MEDS ORDERED: LABETALOL HCL 5 MG/ML 4ML SYRINGE IV PRN (09:15)
[2021-01-26] MEDS ORDERED: AZITHROMYCIN 500MG/ 250ML 250 ML IV ONE (09:15)
[2021-01-26] MEDS ORDERED: DOCUSATE SOD 100 MG CAP PO PRN (09:15)
[2021-01-26] MEDS ORDERED: ACETAMINOPHEN 325 MG TAB PO PRN (09:15)
[2021-01-26 09:24] LABS: Urine Bacteria NONE SEEN /hpf (None Seen); Urine Blood Negative /uL (Negative); Urine Specific Gravity 1.009 (1.001-1.035); Urine WBC 2 /hpf (0 - 5)
[2021-01-26 09:43] LABS: INR 1.03 (0.9-1.15)
[2021-01-26] MEDS: METOPROLOL SUCCINATE XL 50 MG TAB PO SCH (09:44)
[2021-01-26] MEDS: DexAMETHasone SOD PHOS 10MG/1ML VIAL INJ IV SCH (09:44)
[2021-01-26] MEDS: NIFEdipine ER 30 MG TAB PO SCH (09:44)
[2021-01-26] MEDS: ASPirin 81 mg TAB PO SCH (09:45)
[2021-01-26 09:59] LABS: Alcohol, Urine < 3.0 mg/dL (0-10); Amphetamine Screen, Urine NEGATIVE (NEGATIVE); Barbiturate Scree,Urine NEGATIVE (NEGATIVE); Benzodiazephine Screen, Urine NEGATIVE (NEGATIVE); Cannabinoid Screen, Urine POSITIVE (NEGATIVE); Cocaine Screen, Urine NEGATIVE (NEGATIVE); Opiate Scree,Urine NEGATIVE (NEGATIVE); Phencyclidine Screen, Urine NEGATIVE (NEGATIVE)
[2021-01-26] MEDS: IPRATROPIUM BROM 0.5 MG/2.5ML INH SOL NEB SCH ×4 (10:00→22:06)
[2021-01-26] MEDS ORDERED: FAMOTIDINE (10MG/ML) 2ML VL IV SCH (10:00)
[2021-01-26] MEDS ORDERED: ENOXAPARIN SOD 60 MG/0.6 ML SYRINGE SC ONE (10:15)
[2021-01-26] MEDS: InsuLIN REG 1unit/0.01ml Soln (100units/ml) SC SCH ×3 (11:30→22:00)
[2021-01-26] MEDS: ACCU-CHEK COMFORT CURVE STRIP VI SCH ×3 (12:07→22:00)
[2021-01-26] MEDS ORDERED: hydrALAZINE HCL 25 MG TAB PO SCH (14:00)
[2021-01-26 17:00] VITALS: BP 117/72
[2021-01-26] MEDS: FUROSEMIDE 20 MG/2 ML VIAL IV SCH (18:32)
[2021-01-26 18:48] VITALS: BP 117/72
[2021-01-26 18:52] VITALS: BP 117/72
[2021-01-26 20:00] VITALS: BP 114/68
[2021-01-26] MEDS ORDERED: HYDR50TA15 PO (20:19)
[2021-01-26] MEDS ORDERED: ATOR20TA PO (20:19)
[2021-01-26 22:00] VITALS: BP 114/66
[2021-01-26] MEDS: ENOXAPARIN SOD 40 MG/0.4 ML SYRINGE SC SCH (22:00)
[2021-01-26] MEDS ORDERED: ATORVASTATIN 20 MG TAB PO SCH (22:00)
[2021-01-27] MEDS ORDERED: hydrALAZINE HCL 25 MG TAB PO PRN
[2021-01-27] MEDS ORDERED: LEVALBUTEROL HCL 1.25 MG/3 ML NEB ONE (02:10)
[2021-01-27] MEDS: LEVALBUTEROL HCL 1.25 MG/3 ML NEB NEB SCH ×6 (02:32→22:10)
[2021-01-27] MEDS: IPRATROPIUM BROM 0.5 MG/2.5ML INH SOL NEB SCH ×6 (02:32→22:10)
[2021-01-27 05:00] VITALS: BP 122/63
[2021-01-27] MEDS ORDERED: SODIUM BICARBONATE 8.4% INJ 50ML SYRINGE ONE (05:07)
[2021-01-27] MEDS: FUROSEMIDE 20 MG/2 ML VIAL IV SCH ×2 (05:39→18:00)
[2021-01-27] MEDS: InsuLIN REG 1unit/0.01ml Soln (100units/ml) SC SCH ×4 (06:12→22:00)
[2021-01-27] MEDS: ACCU-CHEK COMFORT CURVE STRIP VI SCH ×4 (06:12→22:00)
[2021-01-27 07:20] LABS: Basophils # (auto) 0 10 ^3/uL (0-0.2); Basophils % (auto) 0.1 % (0.0-2.0); Eosinophils # (auto) 0 10 ^3/uL (0-0.8); Hematocrit 42.5 % (36.0-46.0); Hemoglobin 13.9 g/dL (12.2-16.2); Lymphocytes # (auto) 0.6 10 ^3/uL (0.4-5.4); Lymphocytes % (auto) 8.6 % (10.0-50.0); Mean Corpuscular Hemoglobin 27.6 pg (28.0-32.0); Mean Corpuscular Hgb Conc. 32.8 g/dL (32.0-36.0); Mean Corpuscular Volume 84.3 fL (80.0-100.0); Monocytes # (auto) 0.4 10 ^3/uL (0-1.3); Monocytes % (auto) 6.3 % (0.0-12.0); Red Blood Cells 5.04 10^6/uL (4.0-5.20); Red Cell Distribution Width 16.3 % (11.8-14.3); White Blood Cell 7.1 10^3/uL (4.4-10.8)
[2021-01-27 07:36] LABS: INR 1.03 (0.9-1.15); Partial Thromboplastin Time 25.6 sec (23.0-31.2)
[2021-01-27 08:07] LABS: Potassium 4.8 mmol/L (3.5-5.1)
[2021-01-27 08:17] LABS: Albumin 3.4 g/dL (3.4-5.0); BUN/Creatinine Ratio 18.2; Bilirubin, Total 0.4 mg/dL (0.2-1.0); Calcium 8.9 mg/dL (8.5-10.1); Magnesium 2.7 mg/dL (1.6-2.6); Phosphorus 4.7 mg/dL (2.5-4.90); Total Protein 6.9 g/dL (6.4-8.2)
[2021-01-27 08:31] VITALS: BP 109/71
[2021-01-27] MEDS: cefTRIAXone 1GM/50ML D5W 50 ML IV SCH (09:32)
[2021-01-27] MEDS: FAMOTIDINE (10MG/ML) 2ML VL IV SCH (09:33)
[2021-01-27] MEDS: DexAMETHasone SOD PHOS 10MG/1ML VIAL INJ IV SCH (09:33)
[2021-01-27] MEDS: NIFEdipine ER 30 MG TAB PO SCH (09:33)
[2021-01-27] MEDS: ASPirin 81 mg TAB PO SCH (09:33)
[2021-01-27] MEDS: ENOXAPARIN SOD 40 MG/0.4 ML SYRINGE SC SCH ×2 (09:34→22:00)
[2021-01-27] MEDS: METOPROLOL SUCCINATE XL 50 MG TAB PO SCH (09:34)
[2021-01-27] MEDS: AZITHROMYCIN 500MG/ 250ML 250 ML IV SCH (11:11)
[2021-01-27 13:33] VITALS: BP 108/66
[2021-01-27 16:46] VITALS: BP 123/60
[2021-01-27 22:00] VITALS: BP 129/73
[2021-01-27] MEDS ORDERED: ATORVASTATIN 20 MG TAB PO SCH (22:00)
[2021-01-28] MEDS: LEVALBUTEROL HCL 1.25 MG/3 ML NEB NEB SCH ×3 (02:12→12:17)
[2021-01-28] MEDS: IPRATROPIUM BROM 0.5 MG/2.5ML INH SOL NEB SCH ×3 (02:12→12:17)
[2021-01-28 05:00] VITALS: BP 121/71
[2021-01-28] MEDS: InsuLIN REG 1unit/0.01ml Soln (100units/ml) SC SCH ×2 (05:22→11:30)
[2021-01-28] MEDS: FUROSEMIDE 20 MG/2 ML VIAL IV SCH (05:22)
[2021-01-28] MEDS: ACCU-CHEK COMFORT CURVE STRIP VI SCH ×2 (05:23→11:30)
[2021-01-28] MEDS: cefTRIAXone 1GM/50ML D5W 50 ML IV SCH (09:00)
[2021-01-28 09:15] VITALS: BP 140/98
[2021-01-28] MEDS: DexAMETHasone SOD PHOS 10MG/1ML VIAL INJ IV SCH (10:00)
[2021-01-28] MEDS ORDERED: SACUBITRIL-VALSARTAN 24mg/26mg TAB PO SCH (10:00)
[2021-01-28] MEDS: FAMOTIDINE (10MG/ML) 2ML VL IV SCH (10:00)
[2021-01-28] MEDS ORDERED: metOLazone 5 MG TAB PO ONE (10:00)
[2021-01-28] MEDS: ENOXAPARIN SOD 40 MG/0.4 ML SYRINGE SC SCH (10:00)
[2021-01-28] MEDS: AZITHROMYCIN 500MG/ 250ML 250 ML IV SCH (10:00)
[2021-01-28] MEDS: ASPirin 81 mg TAB PO SCH (10:01)
[2021-01-28] MEDS: NIFEdipine ER 30 MG TAB PO SCH (10:02)
[2021-01-28] MEDS: METOPROLOL SUCCINATE XL 50 MG TAB PO SCH (10:03)
[2021-01-28 12:30] VITALS: BP 123/66
== END 2021-01-28 15:10 | disposition home or self-care (01) | DRG 291 ==
LOC: EDSEX 06:28 → EDBD 06:28 → ER 06:28 → OVERFLOW 08:39 → TELE 09:45 → TELE-WESTW 16:19
PROVIDERS: ADMIT Hospitalist; ATTEND Internal Medicine Geriatric Medicine
PROC: 5A09357 Assistance with Respiratory Ventilation, Less than 24 Consecutive Hours, Continuous Positive Airway Pressure (ICD-10-PCS; principal; 2021-01-26)
DX: I13.0 Hypertensive heart and chronic kidney disease with heart failure and stage 1 through stage 4 chronic kidney disease, or unspecified chronic kidney disease (principal); J18.9 Pneumonia, unspecified organism; J96.22 Acute and chronic respiratory failure with hypercapnia; I50.33 Acute on chronic diastolic (congestive) heart failure; J44.1 Chronic obstructive pulmonary disease with (acute) exacerbation; I16.1 Hypertensive emergency; I47.2 Ventricular tachycardia; I47.1 Supraventricular tachycardia; N17.9 Acute kidney failure, unspecified; J44.0 Chronic obstructive pulmonary disease with (acute) lower respiratory infection; N18.31 Chronic kidney disease, stage 3a; I25.5 Ischemic cardiomyopathy; E78.5 Hyperlipidemia, unspecified; F12.90 Cannabis use, unspecified, uncomplicated; F17.200 Nicotine dependence, unspecified, uncomplicated; R54 Age-related physical debility; R73.9 Hyperglycemia, unspecified; Z20.822 Contact with and (suspected) exposure to COVID-19; F41.9 Anxiety disorder, unspecified; I07.1 Rheumatic tricuspid insufficiency; I25.10 Atherosclerotic heart disease of native coronary artery without angina pectoris; I50.84 End stage heart failure; Z79.82 Long term (current) use of aspirin; Z79.899 Other long term (current) drug therapy; Z82.3 Family history of stroke; Z82.49 Family history of ischemic heart disease and other diseases of the circulatory system; Z83.3 Family history of diabetes mellitus; Z86.73 Personal history of transient ischemic attack (TIA), and cerebral infarction without residual deficits; Z87.440 Personal history of urinary (tract) infections; Z95.1 Presence of aortocoronary bypass graft; Z88.8 Allergy status to other drugs, medicaments and biological substances; Z91.041 Radiographic dye allergy status; Z88.1 Allergy status to other antibiotic agents
CPT/HCPCS: 36415; 36600; 71045; 80053; 80307; 81001; 82306; 82805; 82962; 83036; 83605; 83735; 83880; 84100; 84443; 84484; 85025; 85379; 85610; 85730; 87040; 87086; 87426; 93005; 93306; 93970; 94640; 94644; 96365; 96366; 96368; 96375; 96376; 99291; G0378; J0696; J1100; J1815; J3490; J7060

== ENCOUNTER 2021-03-19 11:07 | Inpatient (IN) | payer OTHER ==
[~2021-03-19] VITALS: Ht 167.6 cm; Wt 64.8 kg
[~2021-03-19 11:07] MED LIST changes: -ALPR0.25 PO; +ALPR0.255 PO; +ATOR20TA PO; +CETI-120 PO; +FLUT50SP NAS; +FUR20T PO; +HYDR-4072; -HYDR-4296 PO; +HYDR50TA15 PO; +IPRA0.00; +NITR0.4S29
[2021-03-19] MEDS ORDERED: IPRATROPIUM BROM 0.5 MG/2.5ML INH SOL NEB ONE (12:15)
[2021-03-19] MEDS ORDERED: methylPREDNISolone SOD SUCC 125 MG/2 ML VL IV ONE (12:15)
[2021-03-19 12:19] LABS: Basophils # (auto) 0 10 ^3/uL (0-0.2); Basophils % (auto) 0.4 % (0.0-2.0); Eosinophils # (auto) 0 10 ^3/uL (0-0.8); Eosinophils % (auto) 0.3 % (0.0-7.0); Hematocrit 42.1 % (36.0-46.0); Hemoglobin 13.6 g/dL (12.2-16.2); Lymphocytes # (auto) 0.6 10 ^3/uL (0.4-5.4); Mean Corpuscular Hemoglobin 27.8 pg (28.0-32.0); Mean Corpuscular Hgb Conc. 32.3 g/dL (32.0-36.0); Monocytes # (auto) 0.9 10 ^3/uL (0-1.3); Monocytes % (auto) 7.4 % (0.0-12.0); Neutrophils # (auto) 10.2 10 ^3/uL (1.6-8.6); Neutrophils % (auto) 86.9 % (37.0-80.0); Platelet Count (auto) 248 10^3/uL (140-450); Red Blood Cells 4.89 10^6/uL (4.0-5.20); Red Cell Distribution Width 15.7 % (11.8-14.3); White Blood Cell 11.8 10^3/uL (4.4-10.8)
[2021-03-19 12:24] LABS: Albumin 3.6 g/dL (3.4-5.0); Anion Gap 9 (5-15); Blood Urea Nitrogen 28 mg/dL (7-18); Calcium 9.4 mg/dL (8.5-10.1); Carbon Dioxide 24 mmol/L (21-32); Chloride 100 mmol/L (98-107); Glucose 125 mg/dL (74-106); Magnesium 2.6 mg/dL (1.6-2.6); Potassium 4.6 mmol/L (3.5-5.1); Sodium 133 mmol/L (136-145)
[2021-03-19 12:29] LABS: Alanine Aminotransferase 21 U/L (13-56); Alkaline Phosphatase 90 U/L (45-117); Aspartate Aminotransferase 17 U/L (15-37); BUN/Creatinine Ratio 18.7; Bilirubin, Total 1.1 mg/dL (0.2-1.0); GFR African American 44 mL/min; GFR Non-African American 36 mL/min; Total Protein 7.9 g/dL (6.4-8.2)
[2021-03-19] MEDS ORDERED: cefTRIAXone 1GM/50ML D5W 50 ML IV ONE (12:45)
[2021-03-19 14:25] VITALS: BP 129/102
[2021-03-19] MEDS ORDERED: MORPHINE SULF INJ 2 MG/ML SYRINGE 1ML IV PRN ×2 (14:45)
[2021-03-19] MEDS ORDERED: ACETAMINOPHEN 500 MG TAB PO PRN (14:45)
[2021-03-19] MEDS ORDERED: NITROGLYCERIN 0.4 MG SL TAB SL PRN (14:45)
[2021-03-19] MEDS ORDERED: FUROSEMIDE 20 MG/2 ML VIAL IV ONE (14:45)
[2021-03-19] MEDS ORDERED: HYDROcodone-ACET 5/325MG TAB PO PRN (14:45)
[2021-03-19] MEDS ORDERED: ALPRAZolam 0.25 MG TAB PO PRN (14:45)
[2021-03-19] MEDS ORDERED: ONDANSETRON HCL 4 MG/2 ML VIAL IV PRN (14:45)
[2021-03-19] MEDS: AZITHROMYCIN 250 MG TAB PO SCH (15:19)
[2021-03-19 15:26] VITALS: BP 107/67
[2021-03-19] MEDS: ENOXAPARIN SOD 40 MG/0.4 ML SYRINGE SC SCH (15:33)
[2021-03-19 16:15] LABS: Urine Bacteria FEW /hpf (None Seen); Urine Blood Negative /uL (Negative); Urine Hyaline Cast FEW /lpf (0 - 2); Urine Mucus FEW (None Seen); Urine Specific Gravity 1.021 (1.001-1.035); Urine WBC 95 /hpf (0 - 5)
[2021-03-19] MEDS: BUDESONIDE (INHALATION) 0.5 MG/2 ML NEB NEB SCH (17:59)
[2021-03-19] MEDS: IPRATROPIUM BROM 0.5 MG/2.5ML INH SOL NEB SCH ×2 (17:59→23:12)
[2021-03-19] MEDS: LEVALBUTEROL HCL 1.25 MG/3 ML NEB NEB SCH ×2 (17:59→23:12)
[2021-03-19 18:00] VITALS: BP 141/67
[2021-03-19] MEDS ORDERED: LEVALBUTEROL HCL 1.25 MG/3 ML NEB NEB SCH (18:00)
[2021-03-19] MEDS ORDERED: NIFE1TAB36 PO (18:57)
[2021-03-19 22:00] VITALS: BP 136/71
[2021-03-19] MEDS: ATORVASTATIN 20 MG TAB PO SCH (22:00)
[2021-03-19] MEDS ORDERED: ALBUTEROL SULF 2.5 MG/0.5ML(0.5%) NEB SOLN NEB PRN (22:45)
[2021-03-20 05:00] VITALS: BP 137/77
[2021-03-20 05:59] LABS: Basophils # (auto) 0 10 ^3/uL (0-0.2); Basophils % (auto) 0.1 % (0.0-2.0); Eosinophils # (auto) 0 10 ^3/uL (0-0.8); Hematocrit 36.5 % (36.0-46.0); Hemoglobin 12.7 g/dL (12.2-16.2); Lymphocytes # (auto) 0.4 10 ^3/uL (0.4-5.4); Lymphocytes % (auto) 5.3 % (10.0-50.0); Mean Corpuscular Hemoglobin 29.4 pg (28.0-32.0); Mean Corpuscular Hgb Conc. 34.8 g/dL (32.0-36.0); Mean Corpuscular Volume 84.6 fL (80.0-100.0); Monocytes # (auto) 0.2 10 ^3/uL (0-1.3); Monocytes % (auto) 3.2 % (0.0-12.0); Neutrophils % (auto) 91.4 % (37.0-80.0); Platelet Count (auto) 224 10^3/uL (140-450); Red Blood Cells 4.31 10^6/uL (4.0-5.20); Red Cell Distribution Width 15.3 % (11.8-14.3); White Blood Cell 7.6 10^3/uL (4.4-10.8)
[2021-03-20 06:21] LABS: Alanine Aminotransferase 21 U/L (13-56); Albumin 2.9 g/dL (3.4-5.0); Anion Gap 8 (5-15); Aspartate Aminotransferase 16 U/L (15-37); BUN/Creatinine Ratio 27.3; Blood Urea Nitrogen 39 mg/dL (7-18); Calcium 8.9 mg/dL (8.5-10.1); Carbon Dioxide 27 mmol/L (21-32); Chloride 99 mmol/L (98-107); GFR African American 46 mL/min; GFR Non-African American 38 mL/min; Glucose 148 mg/dL (74-106); Potassium 4.3 mmol/L (3.5-5.1); Sodium 134 mmol/L (136-145)
[2021-03-20 06:25] LABS: Alkaline Phosphatase 81 U/L (45-117); Bilirubin, Total 0.5 mg/dL (0.2-1.0); Total Protein 7.1 g/dL (6.4-8.2)
[2021-03-20] MEDS: LEVALBUTEROL HCL 1.25 MG/3 ML NEB NEB SCH ×3 (06:47→18:11)
[2021-03-20] MEDS: IPRATROPIUM BROM 0.5 MG/2.5ML INH SOL NEB SCH ×3 (06:47→18:11)
[2021-03-20 09:09] VITALS: BP 133/76
[2021-03-20] MEDS: PANTOPRAZOLE 40 MG TAB PO SCH (09:30)
[2021-03-20] MEDS: cefTRIAXone 1GM/50ML D5W 50 ML IV SCH (09:30)
[2021-03-20] MEDS: ASPirin 325 MG TAB PO SCH (09:30)
[2021-03-20] MEDS: AZITHROMYCIN 250 MG TAB PO SCH (09:31)
[2021-03-20] MEDS: methylPREDNISolone SOD SUCC 40 MG/ML VL IV SCH ×2 (09:32→21:27)
[2021-03-20] MEDS: METOPROLOL SUCCINATE XL 50 MG TAB PO SCH (09:32)
[2021-03-20] MEDS: ENOXAPARIN SOD 40 MG/0.4 ML SYRINGE SC SCH (09:32)
[2021-03-20] MEDS: FUROSEMIDE 20 MG/2 ML VIAL IV SCH (09:32)
[2021-03-20] MEDS: NIFEdipine ER 30 MG TAB PO SCH (09:35)
[2021-03-20] MEDS ORDERED: RAMIPRIL 10 MG CAP PO SCH (10:00)
[2021-03-20] MEDS: BUDESONIDE (INHALATION) 0.5 MG/2 ML NEB NEB SCH ×3 (10:00→22:00)
[2021-03-20 13:00] VITALS: BP 113/80
[2021-03-20 16:39] VITALS: BP 143/74
[2021-03-20] MEDS: ATORVASTATIN 20 MG TAB PO SCH (21:27)
[2021-03-20 21:52] VITALS: BP 114/70
[2021-03-21] VITALS (7 sets, daily range): BP systolic 129–154; BP diastolic 64–81
[2021-03-21 05:27] LABS: Basophils # (auto) 0 10 ^3/uL (0-0.2); Basophils % (auto) 0.2 % (0.0-2.0); Eosinophils # (auto) 0 10 ^3/uL (0-0.8); Hematocrit 38.1 % (36.0-46.0); Hemoglobin 13.1 g/dL (12.2-16.2); Lymphocytes # (auto) 0.4 10 ^3/uL (0.4-5.4); Lymphocytes % (auto) 3.7 % (10.0-50.0); Mean Corpuscular Hemoglobin 29.1 pg (28.0-32.0); Mean Corpuscular Hgb Conc. 34.2 g/dL (32.0-36.0); Mean Corpuscular Volume 84.9 fL (80.0-100.0); Monocytes # (auto) 0.4 10 ^3/uL (0-1.3); Neutrophils % (auto) 92.1 % (37.0-80.0); Platelet Count (auto) 267 10^3/uL (140-450); Red Blood Cells 4.49 10^6/uL (4.0-5.20); Red Cell Distribution Width 15.4 % (11.8-14.3); White Blood Cell 9.8 10^3/uL (4.4-10.8)
[2021-03-21 05:57] LABS: Potassium 4.5 mmol/L (3.5-5.1)
[2021-03-21 06:04] LABS: BUN/Creatinine Ratio 37.8; Calcium 9.2 mg/dL (8.5-10.1); Magnesium 2.6 mg/dL (1.6-2.6)
[2021-03-21] MEDS: BUDESONIDE (INHALATION) 0.5 MG/2 ML NEB NEB SCH (07:28)
[2021-03-21] MEDS: IPRATROPIUM BROM 0.5 MG/2.5ML INH SOL NEB SCH ×3 (07:28→18:44)
[2021-03-21] MEDS: LEVALBUTEROL HCL 1.25 MG/3 ML NEB NEB SCH ×3 (07:28→18:44)
[2021-03-21] MEDS: METOPROLOL SUCCINATE XL 50 MG TAB PO SCH (09:07)
[2021-03-21] MEDS: PANTOPRAZOLE 40 MG TAB PO SCH (09:07)
[2021-03-21] MEDS: ENOXAPARIN SOD 40 MG/0.4 ML SYRINGE SC SCH ×2 (09:07→09:14)
[2021-03-21] MEDS: FUROSEMIDE 20 MG/2 ML VIAL IV SCH (09:08)
[2021-03-21] MEDS: NIFEdipine ER 30 MG TAB PO SCH (09:08)
[2021-03-21] MEDS: AZITHROMYCIN 250 MG TAB PO SCH (09:08)
[2021-03-21] MEDS: cefTRIAXone 1GM/50ML D5W 50 ML IV SCH (09:08)
[2021-03-21] MEDS: ASPirin 325 MG TAB PO SCH (09:08)
[2021-03-21] MEDS: methylPREDNISolone SOD SUCC 40 MG/ML VL IV SCH ×2 (09:09→22:52)
[2021-03-21] MEDS: ATORVASTATIN 20 MG TAB PO SCH (22:00)
[2021-03-22 04:55] VITALS: BP 141/76
[2021-03-22] MEDS: LEVALBUTEROL HCL 1.25 MG/3 ML NEB NEB SCH (07:04)
[2021-03-22] MEDS: BUDESONIDE (INHALATION) 0.5 MG/2 ML NEB NEB SCH ×4 (07:04→11:06)
[2021-03-22] MEDS: IPRATROPIUM BROM 0.5 MG/2.5ML INH SOL NEB SCH (07:04)
[2021-03-22] MEDS: FUROSEMIDE 20 MG/2 ML VIAL IV SCH (08:52)
[2021-03-22] MEDS: cefTRIAXone 1GM/50ML D5W 50 ML IV SCH (08:52)
[2021-03-22] MEDS: methylPREDNISolone SOD SUCC 40 MG/ML VL IV SCH (08:52)
[2021-03-22] MEDS: ASPirin 325 MG TAB PO SCH (08:53)
[2021-03-22] MEDS: AZITHROMYCIN 250 MG TAB PO SCH (08:53)
[2021-03-22] MEDS: NIFEdipine ER 30 MG TAB PO SCH (08:54)
[2021-03-22] MEDS: PANTOPRAZOLE 40 MG TAB PO SCH (08:54)
[2021-03-22] MEDS: METOPROLOL SUCCINATE XL 50 MG TAB PO SCH (08:54)
[2021-03-22 09:00] VITALS: BP_SYST 151; BP_SYST 154; BP_DIAS 73; BP_DIAS 80
[2021-03-22] MEDS: ENOXAPARIN SOD 40 MG/0.4 ML SYRINGE SC SCH (10:00)
[2021-03-22] MEDS ORDERED: LISINOPRIL 10 MG TAB PO SCH (10:00)
[2021-03-22 10:20] VITALS: BP 151/80
== END 2021-03-22 10:59 | disposition home or self-care (01) | DRG 291 ==
LOC: EDBD 11:07 → ER 11:07 → TELE 14:35 → TELE-WESTW 17:19
PROVIDERS: ADMIT Nurse Practitioner Acute Care; ATTEND Internal Medicine Geriatric Medicine
PROC: 5A09357 Assistance with Respiratory Ventilation, Less than 24 Consecutive Hours, Continuous Positive Airway Pressure (ICD-10-PCS; principal; 2021-03-19)
DX: I13.0 Hypertensive heart and chronic kidney disease with heart failure and stage 1 through stage 4 chronic kidney disease, or unspecified chronic kidney disease (principal); J96.21 Acute and chronic respiratory failure with hypoxia; I50.23 Acute on chronic systolic (congestive) heart failure; J44.1 Chronic obstructive pulmonary disease with (acute) exacerbation; J98.11 Atelectasis; I42.9 Cardiomyopathy, unspecified; N18.32 Chronic kidney disease, stage 3b; F41.9 Anxiety disorder, unspecified; I08.1 Rheumatic disorders of both mitral and tricuspid valves; I25.10 Atherosclerotic heart disease of native coronary artery without angina pectoris; D72.829 Elevated white blood cell count, unspecified; Z20.822 Contact with and (suspected) exposure to COVID-19; Z66 Do not resuscitate; Z88.1 Allergy status to other antibiotic agents; Z91.041 Radiographic dye allergy status; Z88.8 Allergy status to other drugs, medicaments and biological substances; Z79.82 Long term (current) use of aspirin; Z79.899 Other long term (current) drug therapy; Z82.3 Family history of stroke; Z82.49 Family history of ischemic heart disease and other diseases of the circulatory system; Z83.3 Family history of diabetes mellitus; Z86.16 Personal history of COVID-19; Z86.73 Personal history of transient ischemic attack (TIA), and cerebral infarction without residual deficits; Z87.891 Personal history of nicotine dependence; Z95.1 Presence of aortocoronary bypass graft; Z99.81 Dependence on supplemental oxygen
CPT/HCPCS: 36415; 71045; 80048; 80053; 81001; 83605; 83735; 83880; 84443; 84484; 85025; 85049; 87040; 87426; 94640; 94660; 96365; 99291; G0378; J0696

== ENCOUNTER 2021-08-16 08:17 | Emergency (ER) | payer OTHER ==
[~2021-08-16] VITALS: Ht 167.6 cm; Wt 81.6 kg
[~2021-08-16 08:17] MED LIST changes: -AMLO-496 PO; -ATOR20TA PO; -IPRA0.00; +NIFE1TAB36 PO
[2021-08-16] MEDS ORDERED: methylPREDNISolone SOD SUCC 125 MG/2 ML VL IV ONE (08:30)
[2021-08-16] MEDS ORDERED: ALBUTEROL SULF 2.5 MG/0.5ML(0.5%) NEB SOLN NEB ONE (08:30)
[2021-08-16] MEDS ORDERED: IPRATROPIUM BROM 0.5 MG/2.5ML INH SOL NEB ONE ×2 (08:30→08:40)
[2021-08-16] MEDS ORDERED: LEVALBUTEROL HCL 1.25 MG/3 ML NEB ONE (08:38)
[2021-08-16] MEDS ORDERED: IPRATROPIUM BROM 0.5 MG/2.5ML INH SOL ONE (08:39)
[2021-08-16] MEDS ORDERED: LEVALBUTEROL HCL 1.25 MG/3 ML NEB NEB ONE ×2 (08:40→10:15)
[2021-08-16] MEDS ORDERED: SODIUM CHLORIDE 0.9% 1,000 ML IV ONE (08:45)
[2021-08-16 09:02] LABS: Basophils # (auto) 0.1 10 ^3/uL (0-0.2); Eosinophils # (auto) 0 10 ^3/uL (0-0.8); Hematocrit 39.7 % (36.0-46.0); Hemoglobin 13.3 g/dL (12.2-16.2); Lymphocytes # (auto) 0.7 10 ^3/uL (0.4-5.4); Lymphocytes % (auto) 10.1 % (10.0-50.0); Mean Corpuscular Hemoglobin 29.5 pg (28.0-32.0); Mean Corpuscular Hgb Conc. 33.6 g/dL (32.0-36.0); Mean Corpuscular Volume 87.9 fL (80.0-100.0); Monocytes % (auto) 14.4 % (0.0-12.0); Neutrophils % (auto) 74.5 % (37.0-80.0); Nucleated Red Blood Cells % 0.2 %; Red Blood Cells 4.51 10^6/uL (4.0-5.20); Red Cell Distribution Width 14.3 % (11.8-14.3); White Blood Cell 6.7 10^3/uL (4.4-10.8)
[2021-08-16 09:44] LABS: Albumin 3.3 g/dL (3.4-5.0); Calcium 9.2 mg/dL (8.5-10.1); Magnesium 2.6 mg/dL (1.6-2.6); Potassium 4.5 mmol/L (3.5-5.1)
[2021-08-16 09:53] LABS: BUN/Creatinine Ratio 13.5; Bilirubin, Total 1.3 mg/dL (0.2-1.0); Total Protein 7.4 g/dL (6.4-8.2)
[2021-08-16] MEDS ORDERED: FUROSEMIDE 40 MG/4 ML VIAL IV ONE (10:15)
[2021-08-16 10:24] LABS: Lactic Acid w/Reflex 2.1 mmol/L (0.4-2.0)
[2021-08-16 10:31] LABS: Urine Bacteria NONE SEEN /hpf (None Seen); Urine Blood Negative /uL (Negative); Urine Specific Gravity 1.023 (1.001-1.035); Urine WBC 1 /hpf (0 - 5)
[2021-08-16 10:37] LABS: INR 1.2 (0.9-1.15); Partial Thromboplastin Time 25.4 sec (23.6-33.0)
[2021-08-16] MEDS ORDERED: ENOXAPARIN SOD 60 MG/0.6 ML SYRINGE SC ONE (16:30)
[2021-08-16] MEDS ORDERED: NITROGLYCERIN 0.4 MG SL TAB SL PRN (17:15)
[2021-08-16] MEDS ORDERED: MORPHINE SULFATE INJECTION 2 MG/ML SYRG IV PRN (17:15)
[2021-08-16 18:00] VITALS: BP 132/59
== END 2021-08-16 17:55 | disposition left against medical advice (07) ==
LOC: ER 08:17 → EDBD 08:17 → UNDOADMIN 17:09 → TELE 17:09 → UNDODISIN 17:55
DX: J44.1 Chronic obstructive pulmonary disease with (acute) exacerbation (principal); R06.03 Acute respiratory distress; I25.10 Atherosclerotic heart disease of native coronary artery without angina pectoris; R77.8 Other specified abnormalities of plasma proteins; R79.1 Abnormal coagulation profile; R79.89 Other specified abnormal findings of blood chemistry; E46 Unspecified protein-calorie malnutrition; I11.0 Hypertensive heart disease with heart failure; I50.9 Heart failure, unspecified; E78.5 Hyperlipidemia, unspecified; Z68.29 Body mass index [BMI] 29.0-29.9, adult; Z95.1 Presence of aortocoronary bypass graft; Z87.891 Personal history of nicotine dependence
CPT/HCPCS: 36415; 36600; 71045; 80053; 81001; 82805; 83605; 83735; 83880; 84443; 84484; 85025; 85379; 85610; 85730; 87040; 93005; 94640; 94660; 96361; 96374; 96375; 99291; J1940; J2930; J7030; J7612; J7644; G0378

== ENCOUNTER 2021-08-21 19:26 | Inpatient (IN) | payer OTHER ==
[~2021-08-21] VITALS: Ht 170.2 cm; Wt 70.0 kg
[2021-08-21] MEDS ORDERED: DexAMETHasone SOD PHOS 10MG/1ML VIAL INJ IV ONE (20:15)
[2021-08-21 20:47] LABS: Basophils # (auto) 0 10 ^3/uL (0-0.2); Basophils % (auto) 0.1 % (0.0-2.0); Eosinophils # (auto) 0 10 ^3/uL (0-0.8); Hematocrit 40.6 % (36.0-46.0); Hemoglobin 12.9 g/dL (12.2-16.2); Lymphocytes # (auto) 0.3 10 ^3/uL (0.4-5.4); Lymphocytes % (auto) 2.3 % (10.0-50.0); Mean Corpuscular Hemoglobin 27.6 pg (28.0-32.0); Mean Corpuscular Hgb Conc. 31.9 g/dL (32.0-36.0); Mean Corpuscular Volume 86.6 fL (80.0-100.0); Monocytes # (auto) 0.7 10 ^3/uL (0-1.3); Monocytes % (auto) 6.5 % (0.0-12.0); Neutrophils % (auto) 91.1 % (37.0-80.0); Nucleated Red Blood Cells % 0.1 %; Red Blood Cells 4.69 10^6/uL (4.0-5.20); Red Cell Distribution Width 14.6 % (11.8-14.3)
[2021-08-21 20:55] LABS: Urine Amorphous Crystal FEW /hpf (None Seen); Urine Bacteria FEW /hpf (None Seen); Urine Blood 3+ /uL (Negative); Urine Hyaline Cast FEW /lpf (0 - 2); Urine Mucus FEW (None Seen); Urine Specific Gravity 1.024 (1.001-1.035); Urine WBC 1 /hpf (0 - 5)
[2021-08-21 21:04] LABS: Albumin 2.7 g/dL (3.4-5.0); Calcium 8.4 mg/dL (8.5-10.1); Magnesium 3.3 mg/dL (1.6-2.6); Potassium 4.7 mmol/L (3.5-5.1)
[2021-08-21 21:07] LABS: Lactic Acid w/Reflex 3.9 mmol/L (0.4-2.0)
[2021-08-21 21:13] LABS: INR 1.77 (0.9-1.15)
[2021-08-21 21:23] LABS: BUN/Creatinine Ratio 22.7; Bilirubin, Total 2.6 mg/dL (0.2-1.0); Total Protein 6.9 g/dL (6.4-8.2)
[2021-08-21] MEDS ORDERED: AZITHROMYCIN 500MG/ 250ML 250 ML IV ONE (22:00)
[2021-08-21] MEDS ORDERED: SODIUM CHLORIDE 0.9% 1,000 ML IV ONE (22:00)
[2021-08-21] MEDS ORDERED: cefTRIAXone 1GM/50ML D5W 50 ML IV ONE (22:00)
[2021-08-21] MEDS ORDERED: HEPARIN DRIP/D5W 100UNITS/ML 250 ML IV SCH (22:15)
[2021-08-21] MEDS ORDERED: ASPirin 325 MG TAB PO ONE (22:15)
[2021-08-21] MEDS ORDERED: HEPARIN SODIUM (PORCINE) 5000 UNITS/ML 1ML VIAL IV ONE (22:15)
[2021-08-22] MEDS ORDERED: MORPHINE SULFATE INJECTION 2 MG/ML SYRG IV PRN (04:15)
[2021-08-22] MEDS ORDERED: ACETAMINOPHEN 500 MG TAB PO PRN (04:15)
[2021-08-22] MEDS ORDERED: NITROGLYCERIN 0.4 MG SL TAB SL PRN (04:15)
[2021-08-22] MEDS ORDERED: DOCUSATE SOD 100 MG CAP PO PRN (04:15)
[2021-08-22] MEDS ORDERED: ONDANSETRON HCL 4 MG/2 ML VIAL IV PRN (04:15)
[2021-08-22] MEDS ORDERED: FUROSEMIDE 40 MG/4 ML VIAL IV ONE (04:15)
[2021-08-22] MEDS ORDERED: DEXTROSE (50%) 50ML SYRG IV PRN (04:15)
[2021-08-22] MEDS ORDERED: HYDROcodone-ACET 5/325MG TAB PO PRN (04:15)
[2021-08-22] MEDS ORDERED: IPRATROPIUM BROM 0.5 MG/2.5ML INH SOL ONE (04:43)
[2021-08-22] MEDS ORDERED: ALBUTEROL SULF 2.5 MG/0.5ML(0.5%) NEB SOLN ONE (04:43)
[2021-08-22] MEDS ORDERED: HEPARIN SODIUM (PORCINE) 5000 UNITS/ML 1ML VIAL SC SCH ×2 (06:00→10:00)
[2021-08-22] MEDS: SODIUM CHLOR 0.9% PF (SALINE LOCK) 10ML VIAL/SYR IV SCH ×3 (06:22→22:44)
[2021-08-22] MEDS: InsuLIN REG 1unit/0.01ml Soln (100units/ml) SC SCH ×3 (08:30→22:00)
[2021-08-22] MEDS: ACCU-CHEK COMFORT CURVE STRIP VI SCH ×3 (09:18→22:45)
[2021-08-22 09:41] LABS: Partial Thromboplastin Time > 139.0 sec (23.6-33.0)
[2021-08-22] MEDS ORDERED: FUROSEMIDE 40 MG/4 ML VIAL IV SCH (10:00)
[2021-08-22] MEDS: BUDESONIDE (INHALATION) 180 MCG IH IN SCH ×2 (10:00→18:56)
[2021-08-22] MEDS: CARVEDILOL 12.5 MG TAB PO SCH ×2 (10:45→22:00)
[2021-08-22] MEDS: CHOLECALCIFEROL (VITD3) 2,000 UNIT CAP/TAB PO SCH (10:45)
[2021-08-22] MEDS: MULTIPLE VITAMIN TAB PO SCH (10:45)
[2021-08-22] MEDS: ASPirin 81 mg TAB PO SCH (10:45)
[2021-08-22] MEDS: ZINC SULFATE 220mg CAP or TAB PO SCH (10:45)
[2021-08-22] MEDS: ASCORBIC ACID 1,000 MG TAB PO SCH (10:45)
[2021-08-22] MEDS: DexAMETHasone SOD PHOS 10MG/1ML VIAL INJ IV SCH (11:16)
[2021-08-22] MEDS: FAMOTIDINE (10MG/ML) 2ML VL IV SCH ×2 (11:17→22:44)
[2021-08-22 12:42] VITALS: BP 145/74
[2021-08-22 13:00] VITALS: BP 145/74
[2021-08-22 14:02] VITALS: BP 145/74
[2021-08-22 16:41] LABS: INR 2.31 (0.9-1.15)
[2021-08-22 16:45] LABS: Partial Thromboplastin Time 133.2 sec (23.6-33.0)
[2021-08-22 17:00] VITALS: BP 135/76
[2021-08-22] MEDS: FUROSEMIDE 40 MG/4 ML VIAL IV SCH (17:58)
[2021-08-22] MEDS: HEPARIN DRIP/D5W 100UNITS/ML 250 ML IV SCH (19:01)
[2021-08-22] MEDS: ALBUTEROL SULF HFA 90MCG INH 200DOSE IN PRN (20:12)
[2021-08-22 20:52] VITALS: BP 151/87
[2021-08-22 21:00] VITALS: BP 148/86
[2021-08-22] MEDS: cefTRIAXone 1GM/50ML D5W 50 ML IV SCH (21:19)
[2021-08-22] MEDS: AZITHROMYCIN 500MG/ 250ML 250 ML IV SCH (21:56)
[2021-08-22 23:20] LABS: INR 2.14 (0.9-1.15); Partial Thromboplastin Time 65.9 sec (23.6-33.0)
[2021-08-23] VITALS (9 sets, daily range): BP systolic 129–145; BP diastolic 73–86
[2021-08-23 06:02] LABS: Basophils # (auto) 0 10 ^3/uL (0-0.2); Basophils % (auto) 0.2 % (0.0-2.0); Eosinophils # (auto) 0 10 ^3/uL (0-0.8); Hemoglobin 12.9 g/dL (12.2-16.2); Lymphocytes # (auto) 0.2 10 ^3/uL (0.4-5.4); Lymphocytes % (auto) 2.2 % (10.0-50.0); Mean Corpuscular Hemoglobin 27.9 pg (28.0-32.0); Mean Corpuscular Hgb Conc. 32.4 g/dL (32.0-36.0); Mean Corpuscular Volume 86.2 fL (80.0-100.0); Monocytes # (auto) 0.3 10 ^3/uL (0-1.3); Neutrophils # (auto) 10.6 10 ^3/uL (1.6-8.6); Neutrophils % (auto) 94.6 % (37.0-80.0); Nucleated Red Blood Cells % 1.2 %; Red Blood Cells 4.64 10^6/uL (4.0-5.20); Red Cell Distribution Width 14.3 % (11.8-14.3); White Blood Cell 11.3 10^3/uL (4.4-10.8)
[2021-08-23 06:21] LABS: INR 2.16 (0.9-1.15); Partial Thromboplastin Time 51.8 sec (23.6-33.0)
[2021-08-23] MEDS: SODIUM CHLOR 0.9% PF (SALINE LOCK) 10ML VIAL/SYR IV SCH ×3 (06:35→22:09)
[2021-08-23] MEDS: InsuLIN REG 1unit/0.01ml Soln (100units/ml) SC SCH ×4 (06:35→22:00)
[2021-08-23] MEDS: FUROSEMIDE 40 MG/4 ML VIAL IV SCH ×2 (06:35→17:30)
[2021-08-23] MEDS: ACCU-CHEK COMFORT CURVE STRIP VI SCH ×4 (06:35→22:09)
[2021-08-23] MEDS: MORPHINE SULFATE INJECTION 2 MG/ML SYRG IV PRN (06:58)
[2021-08-23] MEDS: BUDESONIDE (INHALATION) 180 MCG IH IN SCH ×3 (07:55→18:57)
[2021-08-23] MEDS: ALBUTEROL SULF HFA 90MCG INH 200DOSE IN PRN (07:55)
[2021-08-23] MEDS: FAMOTIDINE (10MG/ML) 2ML VL IV SCH ×2 (09:26→22:00)
[2021-08-23] MEDS: DexAMETHasone SOD PHOS 10MG/1ML VIAL INJ IV SCH (09:26)
[2021-08-23] MEDS: ASPirin 81 mg TAB PO SCH (10:00)
[2021-08-23] MEDS: CHOLECALCIFEROL (VITD3) 2,000 UNIT CAP/TAB PO SCH (10:00)
[2021-08-23] MEDS: CARVEDILOL 12.5 MG TAB PO SCH ×2 (10:00→22:00)
[2021-08-23] MEDS: ZINC SULFATE 220mg CAP or TAB PO SCH (10:00)
[2021-08-23] MEDS: MULTIPLE VITAMIN TAB PO SCH (10:00)
[2021-08-23] MEDS: ASCORBIC ACID 1,000 MG TAB PO SCH (10:00)
[2021-08-23 12:46] LABS: INR 2.15 (0.9-1.15); Partial Thromboplastin Time 63.8 sec (23.6-33.0)
[2021-08-23 15:15] LABS: Albumin 2.6 g/dL (3.4-5.0); Calcium 7.3 mg/dL (8.5-10.1); Magnesium 2.7 mg/dL (1.6-2.6); Potassium 5.5 mmol/L (3.5-5.1)
[2021-08-23 15:26] LABS: BUN/Creatinine Ratio 30.6; Bilirubin, Total 2.3 mg/dL (0.2-1.0)
[2021-08-23] MEDS: SODIUM CHLORIDE 0.9% 1,000 ML IV SCH (17:31)
[2021-08-23] MEDS: HALOPERIDOL LACTATE 5 MG/ML INJ VIAL IV PRN (20:07)
[2021-08-23] MEDS: cefTRIAXone 1GM/50ML D5W 50 ML IV SCH (21:18)
[2021-08-23] MEDS: AZITHROMYCIN 500MG/ 250ML 250 ML IV SCH (22:09)
[2021-08-24] VITALS (9 sets, daily range): BP systolic 95–166; BP diastolic 68–95
[2021-08-24 04:18] LABS: Basophils # (auto) 0 10 ^3/uL (0-0.2); Basophils % (auto) 0.2 % (0.0-2.0); Eosinophils # (auto) 0 10 ^3/uL (0-0.8); Hemoglobin 12.1 g/dL (12.2-16.2); Lymphocytes # (auto) 0.3 10 ^3/uL (0.4-5.4); Lymphocytes % (auto) 2.3 % (10.0-50.0); Mean Corpuscular Hemoglobin 27.3 pg (28.0-32.0); Mean Corpuscular Hgb Conc. 31.9 g/dL (32.0-36.0); Mean Corpuscular Volume 85.7 fL (80.0-100.0); Monocytes # (auto) 0.3 10 ^3/uL (0-1.3); Monocytes % (auto) 2.5 % (0.0-12.0); Neutrophils # (auto) 10.5 10 ^3/uL (1.6-8.6); Nucleated Red Blood Cells % 1.2 %; Red Blood Cells 4.44 10^6/uL (4.0-5.20); Red Cell Distribution Width 14.7 % (11.8-14.3)
[2021-08-24 04:35] LABS: Albumin 2.3 g/dL (3.4-5.0); BUN/Creatinine Ratio 36.6; Calcium 7.4 mg/dL (8.5-10.1); Magnesium 2.7 mg/dL (1.6-2.6); Potassium 4.6 mmol/L (3.5-5.1)
[2021-08-24 04:43] LABS: Bilirubin, Total 2.2 mg/dL (0.2-1.0); Total Protein 5.4 g/dL (6.4-8.2)
[2021-08-24 05:08] LABS: INR 1.85 (0.9-1.15); Partial Thromboplastin Time 67.4 sec (23.6-33.0)
[2021-08-24] MEDS: SODIUM CHLORIDE 0.9% 1,000 ML IV SCH ×2 (06:11→19:10)
[2021-08-24] MEDS: SODIUM CHLOR 0.9% PF (SALINE LOCK) 10ML VIAL/SYR IV SCH ×3 (06:14→21:34)
[2021-08-24] MEDS: InsuLIN REG 1unit/0.01ml Soln (100units/ml) SC SCH ×4 (06:15→21:59)
[2021-08-24] MEDS: ACCU-CHEK COMFORT CURVE STRIP VI SCH ×4 (06:16→21:59)
[2021-08-24] MEDS: BUDESONIDE (INHALATION) 180 MCG IH IN SCH ×2 (06:46→22:00)
[2021-08-24] MEDS: ALBUTEROL SULF HFA 90MCG INH 200DOSE IN PRN ×2 (06:46→18:40)
[2021-08-24] MEDS: FAMOTIDINE (10MG/ML) 2ML VL IV SCH ×2 (09:46→21:34)
[2021-08-24] MEDS: DexAMETHasone SOD PHOS 10MG/1ML VIAL INJ IV SCH (09:46)
[2021-08-24] MEDS: ASCORBIC ACID 1,000 MG TAB PO SCH (10:00)
[2021-08-24] MEDS: ZINC SULFATE 220mg CAP or TAB PO SCH (10:00)
[2021-08-24] MEDS: CHOLECALCIFEROL (VITD3) 2,000 UNIT CAP/TAB PO SCH (10:00)
[2021-08-24] MEDS: MULTIPLE VITAMIN TAB PO SCH (10:00)
[2021-08-24] MEDS: ASPirin 81 mg TAB PO SCH (10:00)
[2021-08-24] MEDS: CARVEDILOL 12.5 MG TAB PO SCH ×2 (10:00→22:00)
[2021-08-24] MEDS: HEPARIN DRIP/D5W 100UNITS/ML 250 ML IV SCH (16:08)
[2021-08-24] MEDS: cefTRIAXone 1GM/50ML D5W 50 ML IV SCH (20:55)
[2021-08-24] MEDS: AZITHROMYCIN 500MG/ 250ML 250 ML IV SCH (21:34)
[2021-08-25 05:02] VITALS: BP 152/102
[2021-08-25 05:33] VITALS: BP 139/81
[2021-08-25] MEDS: SODIUM CHLOR 0.9% PF (SALINE LOCK) 10ML VIAL/SYR IV SCH ×3 (05:40→21:20)
[2021-08-25] MEDS: InsuLIN REG 1unit/0.01ml Soln (100units/ml) SC SCH ×4 (06:35→21:48)
[2021-08-25] MEDS: ACCU-CHEK COMFORT CURVE STRIP VI SCH ×4 (06:35→21:20)
[2021-08-25 07:12] LABS: INR 1.34 (0.9-1.15); Partial Thromboplastin Time 58.9 sec (23.6-33.0)
[2021-08-25] MEDS: HEPARIN DRIP/D5W 100UNITS/ML 250 ML IV SCH ×2 (07:48→18:30)
[2021-08-25 09:00] VITALS: BP 165/85
[2021-08-25] MEDS: ALBUTEROL SULF 2.5 MG/0.5ML(0.5%) NEB SOLN NEB PRN ×2 (09:18→22:35)
[2021-08-25] MEDS: BUDESONIDE (INHALATION) 0.5 MG/2 ML NEB NEB SCH ×2 (09:18→22:35)
[2021-08-25] MEDS: ASPirin 81 mg TAB PO SCH (10:00)
[2021-08-25] MEDS: CARVEDILOL 12.5 MG TAB PO SCH (10:32)
[2021-08-25] MEDS: FAMOTIDINE (10MG/ML) 2ML VL IV SCH ×2 (10:32→21:20)
[2021-08-25] MEDS: ASCORBIC ACID 1,000 MG TAB PO SCH (10:32)
[2021-08-25] MEDS: SODIUM CHLORIDE 0.9% 1,000 ML IV SCH (10:32)
[2021-08-25] MEDS: MULTIPLE VITAMIN TAB PO SCH (10:32)
[2021-08-25] MEDS: ZINC SULFATE 220mg CAP or TAB PO SCH (10:32)
[2021-08-25] MEDS: DexAMETHasone SOD PHOS 10MG/1ML VIAL INJ IV SCH (10:32)
[2021-08-25] MEDS: CHOLECALCIFEROL (VITD3) 2,000 UNIT CAP/TAB PO SCH (10:33)
[2021-08-25] MEDS: hydrALAZINE HCL 20 MG/ML VL IV PRN ×2 (10:35→21:49)
[2021-08-25 12:13] VITALS: BP 165/85
[2021-08-25] MEDS ORDERED: FUROSEMIDE 40 MG/4 ML VIAL IV ONE (15:15)
[2021-08-25 16:53] VITALS: BP 176/87
[2021-08-25] MEDS: cefTRIAXone 1GM/50ML D5W 50 ML IV SCH (20:34)
[2021-08-25] MEDS: AZITHROMYCIN 500MG/ 250ML 250 ML IV SCH (21:20)
[2021-08-26] VITALS (9 sets, daily range): BP systolic 161–179; BP diastolic 75–84
[2021-08-26] MEDS: ALBUTEROL SULF 2.5 MG/0.5ML(0.5%) NEB SOLN NEB PRN ×2 (05:50→19:25)
[2021-08-26] MEDS: BUDESONIDE (INHALATION) 0.5 MG/2 ML NEB NEB SCH ×2 (05:51→19:25)
[2021-08-26] MEDS: SODIUM CHLOR 0.9% PF (SALINE LOCK) 10ML VIAL/SYR IV SCH ×3 (05:55→22:00)
[2021-08-26 06:46] LABS: Basophils # (auto) 0 10 ^3/uL (0-0.2); Basophils % (auto) 0.3 % (0.0-2.0); Eosinophils # (auto) 0 10 ^3/uL (0-0.8); Hematocrit 40.2 % (36.0-46.0); Hemoglobin 13.1 g/dL (12.2-16.2); Lymphocytes # (auto) 0.2 10 ^3/uL (0.4-5.4); Lymphocytes % (auto) 1.7 % (10.0-50.0); Mean Corpuscular Hemoglobin 27.5 pg (28.0-32.0); Mean Corpuscular Hgb Conc. 32.5 g/dL (32.0-36.0); Mean Corpuscular Volume 84.6 fL (80.0-100.0); Monocytes # (auto) 0.5 10 ^3/uL (0-1.3); Monocytes % (auto) 3.9 % (0.0-12.0); Neutrophils # (auto) 11.9 10 ^3/uL (1.6-8.6); Neutrophils % (auto) 94.1 % (37.0-80.0); Nucleated Red Blood Cells % 1.7 %; Red Blood Cells 4.76 10^6/uL (4.0-5.20); White Blood Cell 12.7 10^3/uL (4.4-10.8)
[2021-08-26 06:59] LABS: INR 1.22 (0.9-1.15); Partial Thromboplastin Time 40.3 sec (23.6-33.0)
[2021-08-26] MEDS: ACCU-CHEK COMFORT CURVE STRIP VI SCH ×4 (07:00→22:00)
[2021-08-26 07:12] LABS: Potassium 3.9 mmol/L (3.5-5.1)
[2021-08-26 07:22] LABS: Albumin 1.6 g/dL (3.4-5.0); BUN/Creatinine Ratio 34.9; Bilirubin, Total 1.9 mg/dL (0.2-1.0); Calcium 7.1 mg/dL (8.5-10.1); Total Protein 5.6 g/dL (6.4-8.2)
[2021-08-26] MEDS: InsuLIN REG 1unit/0.01ml Soln (100units/ml) SC SCH ×4 (07:30→22:00)
[2021-08-26] MEDS: DexAMETHasone SOD PHOS 10MG/1ML VIAL INJ IV SCH (10:48)
[2021-08-26] MEDS: FAMOTIDINE (10MG/ML) 2ML VL IV SCH ×2 (10:49→22:03)
[2021-08-26] MEDS: FUROSEMIDE 40 MG/4 ML VIAL IV SCH (10:49)
[2021-08-26] MEDS: hydrALAZINE HCL 20 MG/ML VL IV PRN ×2 (10:49→19:15)
[2021-08-26] MEDS: HEPARIN DRIP/D5W 100UNITS/ML 250 ML IV SCH ×2 (12:15→19:14)
[2021-08-26] MEDS: HALOPERIDOL LACTATE 5 MG/ML INJ VIAL IV PRN (14:05)
[2021-08-26] MEDS: cefTRIAXone 1GM/50ML D5W 50 ML IV SCH (21:38)
[2021-08-26 22:39] LABS: INR 1.26 (0.9-1.15); Partial Thromboplastin Time 46.7 sec (23.6-33.0)
[2021-08-26] MEDS: AZITHROMYCIN 500MG/ 250ML 250 ML IV SCH (22:40)
[2021-08-27] VITALS (11 sets, daily range): BP systolic 111–163; BP diastolic 57–81
[2021-08-27] MEDS: MORPHINE SULFATE INJECTION 2 MG/ML SYRG IV PRN (02:05)
[2021-08-27] MEDS: hydrALAZINE HCL 20 MG/ML VL IV PRN (02:52)
[2021-08-27] MEDS: SODIUM CHLOR 0.9% PF (SALINE LOCK) 10ML VIAL/SYR IV SCH ×3 (06:23→20:46)
[2021-08-27] MEDS: ACCU-CHEK COMFORT CURVE STRIP VI SCH ×4 (06:28→21:44)
[2021-08-27] MEDS: InsuLIN REG 1unit/0.01ml Soln (100units/ml) SC SCH ×4 (06:29→21:45)
[2021-08-27] MEDS: BUDESONIDE (INHALATION) 0.5 MG/2 ML NEB NEB SCH ×2 (06:48→21:35)
[2021-08-27] MEDS: ALBUTEROL SULF 2.5 MG/0.5ML(0.5%) NEB SOLN NEB PRN (06:48)
[2021-08-27 07:09] LABS: Calcium 9.4 mg/dL (8.5-10.1); INR 1.27 (0.9-1.15); Potassium 3.2 mmol/L (3.5-5.1)
[2021-08-27 07:13] LABS: BUN/Creatinine Ratio 41.8; Bilirubin, Total 1.9 mg/dL (0.2-1.0); Total Protein 5.8 g/dL (6.4-8.2)
[2021-08-27 07:25] LABS: Partial Thromboplastin Time 70.3 sec (23.6-33.0)
[2021-08-27] MEDS: FUROSEMIDE 40 MG/4 ML VIAL IV SCH (10:19)
[2021-08-27] MEDS: FAMOTIDINE (10MG/ML) 2ML VL IV SCH ×2 (10:19→20:30)
[2021-08-27] MEDS: DexAMETHasone SOD PHOS 10MG/1ML VIAL INJ IV SCH (10:19)
[2021-08-27] MEDS ORDERED: POTASSIUM CHL 20MEQ/100ML 100 ML IV ONE (12:00)
[2021-08-27 12:27] LABS: INR 1.25 (0.9-1.15); Partial Thromboplastin Time 69.7 sec (23.6-33.0)
[2021-08-27 18:57] LABS: INR 1.27 (0.9-1.15)
[2021-08-27] MEDS: HEPARIN DRIP/D5W 100UNITS/ML 250 ML IV SCH (20:26)
[2021-08-27] MEDS: cefTRIAXone 1GM/50ML D5W 50 ML IV SCH (20:30)
[2021-08-27 20:34] LABS: Partial Thromboplastin Time 77.8 sec (23.6-33.0)
[2021-08-28] VITALS (10 sets, daily range): BP systolic 131–172; BP diastolic 48–88
[2021-08-28 03:07] LABS: INR 1.32 (0.9-1.15); Partial Thromboplastin Time 66.7 sec (23.6-33.0)
[2021-08-28] MEDS: SODIUM CHLOR 0.9% PF (SALINE LOCK) 10ML VIAL/SYR IV SCH ×3 (05:03→21:18)
[2021-08-28] MEDS: hydrALAZINE HCL 20 MG/ML VL IV PRN (05:04)
[2021-08-28] MEDS: ACCU-CHEK COMFORT CURVE STRIP VI SCH ×4 (06:20→21:18)
[2021-08-28 06:21] LABS: Basophils # (auto) 0 10 ^3/uL (0-0.2); Basophils % (auto) 0.1 % (0.0-2.0); Eosinophils # (auto) 0 10 ^3/uL (0-0.8); Hematocrit 45.3 % (36.0-46.0); Hemoglobin 14.2 g/dL (12.2-16.2); Lymphocytes # (auto) 0.2 10 ^3/uL (0.4-5.4); Lymphocytes % (auto) 2.1 % (10.0-50.0); Mean Corpuscular Hemoglobin 27.2 pg (28.0-32.0); Mean Corpuscular Hgb Conc. 31.3 g/dL (32.0-36.0); Mean Corpuscular Volume 86.8 fL (80.0-100.0); Monocytes # (auto) 0.5 10 ^3/uL (0-1.3); Neutrophils # (auto) 9.8 10 ^3/uL (1.6-8.6); Neutrophils % (auto) 92.8 % (37.0-80.0); Nucleated Red Blood Cells % 0.8 %; Red Blood Cells 5.22 10^6/uL (4.0-5.20); Red Cell Distribution Width 15.5 % (11.8-14.3); White Blood Cell 10.5 10^3/uL (4.4-10.8)
[2021-08-28] MEDS: InsuLIN REG 1unit/0.01ml Soln (100units/ml) SC SCH ×4 (06:21→22:00)
[2021-08-28 06:34] LABS: INR 1.29 (0.9-1.15); Partial Thromboplastin Time 62.8 sec (23.6-33.0)
[2021-08-28] MEDS: BUDESONIDE (INHALATION) 0.5 MG/2 ML NEB NEB SCH ×2 (06:48→22:07)
[2021-08-28] MEDS: DexAMETHasone SOD PHOS 10MG/1ML VIAL INJ IV SCH (09:56)
[2021-08-28] MEDS: FUROSEMIDE 40 MG/4 ML VIAL IV SCH (10:05)
[2021-08-28] MEDS: FAMOTIDINE (10MG/ML) 2ML VL IV SCH ×2 (10:05→21:18)
[2021-08-28 15:51] LABS: INR 1.32 (0.9-1.15); Partial Thromboplastin Time 57.7 sec (23.6-33.0)
[2021-08-28] MEDS: cefTRIAXone 1GM/50ML D5W 50 ML IV SCH (21:18)
[2021-08-28] MEDS: ALBUTEROL SULF 2.5 MG/0.5ML(0.5%) NEB SOLN NEB PRN (22:08)
[2021-08-28 22:54] LABS: INR 1.32 (0.9-1.15); Partial Thromboplastin Time 45.3 sec (23.6-33.0)
[2021-08-29] VITALS (9 sets, daily range): BP systolic 130–152; BP diastolic 48–76
[2021-08-29] MEDS: SODIUM CHLOR 0.9% PF (SALINE LOCK) 10ML VIAL/SYR IV SCH ×2 (05:58→15:39)
[2021-08-29] MEDS: BUDESONIDE (INHALATION) 0.5 MG/2 ML NEB NEB SCH ×2 (05:58→21:31)
[2021-08-29] MEDS: ALBUTEROL SULF 2.5 MG/0.5ML(0.5%) NEB SOLN NEB PRN ×2 (05:58→21:31)
[2021-08-29] MEDS: HEPARIN DRIP/D5W 100UNITS/ML 250 ML IV SCH (06:00)
[2021-08-29] MEDS: ACCU-CHEK COMFORT CURVE STRIP VI SCH ×2 (06:11→11:30)
[2021-08-29] MEDS: InsuLIN REG 1unit/0.01ml Soln (100units/ml) SC SCH ×2 (06:12→11:30)
[2021-08-29 07:46] LABS: Bilirubin, Direct 1.1 mg/dL (0-0.2); Bilirubin, Total 1.6 mg/dL (0.2-1.0); Total Protein 5.7 g/dL (6.4-8.2)
[2021-08-29] MEDS: FAMOTIDINE (10MG/ML) 2ML VL IV SCH (10:28)
[2021-08-29] MEDS: DexAMETHasone SOD PHOS 10MG/1ML VIAL INJ IV SCH (10:28)
[2021-08-29] MEDS ORDERED: LACTULOSE 20Gm/30ML SOLN PO PRN (10:30)
[2021-08-29] MEDS ORDERED: PPN PER PHARMACY 0 ML IV SCH (18:00)
[2021-08-29] MEDS: hydrALAZINE HCL 20 MG/ML VL IV PRN (18:19)
[2021-08-29] MEDS ORDERED: AMINO ACID INFUSION IN D10W 1,000 ML IV NR (20:00)
[2021-08-30] MEDS ORDERED: DEXTROSE (50%) 50ML SYRG IV SCH
[2021-08-30] MEDS: cefTRIAXone 1GM/50ML D5W 50 ML IV SCH ×2 (00:47→20:46)
[2021-08-30] MEDS: FAMOTIDINE (10MG/ML) 2ML VL IV SCH ×3 (00:47→20:46)
[2021-08-30] MEDS: SODIUM CHLOR 0.9% PF (SALINE LOCK) 10ML VIAL/SYR IV SCH ×4 (00:48→20:46)
[2021-08-30 05:00] VITALS: BP 105/58
[2021-08-30] MEDS: ACCU-CHEK COMFORT CURVE STRIP VI SCH ×4 (06:00→17:21)
[2021-08-30] MEDS: InsuLIN REG 1unit/0.01ml Soln (100units/ml) SC SCH ×4 (06:00→17:23)
[2021-08-30] MEDS: BUDESONIDE (INHALATION) 0.5 MG/2 ML NEB NEB SCH ×2 (06:02→19:30)
[2021-08-30] MEDS: ALBUTEROL SULF 2.5 MG/0.5ML(0.5%) NEB SOLN NEB PRN ×2 (06:02→19:30)
[2021-08-30 06:52] LABS: Albumin 2.3 g/dL (3.4-5.0); Calcium 8.6 mg/dL (8.5-10.1); Magnesium 3.4 mg/dL (1.6-2.6)
[2021-08-30 06:57] LABS: Bilirubin, Total 2.2 mg/dL (0.2-1.0); Pre Albumin 10.7 mg/dL (20.0-40.0); Total Protein 5.6 g/dL (6.4-8.2)
[2021-08-30 07:27] LABS: BUN/Creatinine Ratio 42.9; Potassium 5.3 mmol/L (3.5-5.1)
[2021-08-30 09:00] VITALS: BP 132/80
[2021-08-30] MEDS: D5W 5% 1,000 ML IV SCH (09:15)
[2021-08-30] MEDS: DexAMETHasone SOD PHOS 10MG/1ML VIAL INJ IV SCH (10:53)
[2021-08-30 14:10] VITALS: BP 129/63
[2021-08-30 16:34] VITALS: BP 149/66
[2021-08-30] MEDS ORDERED: PPN PER PHARMACY IV NR ×4 (20:00)
[2021-08-30 22:06] VITALS: BP 101/48
[2021-08-31] MEDS: InsuLIN REG 1unit/0.01ml Soln (100units/ml) SC SCH ×4 (00:11→17:42)
[2021-08-31] MEDS: ACCU-CHEK COMFORT CURVE STRIP VI SCH ×4 (00:12→17:41)
[2021-08-31 05:00] VITALS: BP 118/61
[2021-08-31] MEDS: D5W 5% 1,000 ML IV SCH ×2 (05:15→11:00)
[2021-08-31] MEDS: SODIUM CHLOR 0.9% PF (SALINE LOCK) 10ML VIAL/SYR IV SCH ×3 (05:21→21:28)
[2021-08-31] MEDS: BUDESONIDE (INHALATION) 0.5 MG/2 ML NEB NEB SCH ×2 (05:55→23:13)
[2021-08-31] MEDS: ALBUTEROL SULF 2.5 MG/0.5ML(0.5%) NEB SOLN NEB PRN ×2 (05:55→23:14)
[2021-08-31 06:46] LABS: Potassium 4.6 mmol/L (3.5-5.1)
[2021-08-31 06:54] LABS: Albumin 2.2 g/dL (3.4-5.0); Bilirubin, Total 1.7 mg/dL (0.2-1.0); Calcium 8.6 mg/dL (8.5-10.1); Magnesium 3.2 mg/dL (1.6-2.6); Phosphorus 3.4 mg/dL (2.5-4.90); Total Protein 5.5 g/dL (6.4-8.2)
[2021-08-31 07:30] LABS: BUN/Creatinine Ratio 47.5
[2021-08-31 08:46] VITALS: BP 144/89
[2021-08-31] MEDS: FAMOTIDINE (10MG/ML) 2ML VL IV SCH ×2 (09:34→21:28)
[2021-08-31] MEDS: DexAMETHasone SOD PHOS 10MG/1ML VIAL INJ IV SCH (09:34)
[2021-08-31 13:00] VITALS: BP 151/56
[2021-08-31 17:00] VITALS: BP 141/54
[2021-08-31] MEDS ORDERED: PPN PER PHARMACY IV NR ×4 (20:00)
[2021-08-31] MEDS: cefTRIAXone 1GM/50ML D5W 50 ML IV SCH (20:03)
[2021-08-31 22:00] VITALS: BP 120/65
[2021-09-01 02:35] VITALS: BP 120/65
[2021-09-01 05:30] VITALS: BP 138/57
[2021-09-01] MEDS: SODIUM CHLOR 0.9% PF (SALINE LOCK) 10ML VIAL/SYR IV SCH (06:21)
[2021-09-01] MEDS: InsuLIN REG 1unit/0.01ml Soln (100units/ml) SC SCH ×2 (06:23)
[2021-09-01] MEDS: ACCU-CHEK COMFORT CURVE STRIP VI SCH ×2 (06:24)
[2021-09-01 06:47] LABS: Potassium 5.3 mmol/L (3.5-5.1)
[2021-09-01 06:55] LABS: Albumin 2.1 g/dL (3.4-5.0); Bilirubin, Total 1.8 mg/dL (0.2-1.0); Calcium 8.3 mg/dL (8.5-10.1); Magnesium 3.4 mg/dL (1.6-2.6); Phosphorus 4.9 mg/dL (2.5-4.90); Total Protein 5.7 g/dL (6.4-8.2)
[2021-09-01] MEDS: BUDESONIDE (INHALATION) 0.5 MG/2 ML NEB NEB SCH (07:05)
[2021-09-01] MEDS: ALBUTEROL SULF 2.5 MG/0.5ML(0.5%) NEB SOLN NEB PRN (07:12)
[2021-09-01 08:18] LABS: BUN/Creatinine Ratio 49.9
[2021-09-01 09:00] VITALS: BP 152/72
[2021-09-01] MEDS: DexAMETHasone SOD PHOS 10MG/1ML VIAL INJ IV SCH (09:50)
[2021-09-01] MEDS: FAMOTIDINE (10MG/ML) 2ML VL IV SCH (09:50)
[2021-09-01] MEDS ORDERED: InsuLIN REG 1unit/0.01ml Soln (100units/ml) SC SCH ×2 (11:30→22:00)
[2021-09-01] MEDS ORDERED: ACCU-CHEK COMFORT CURVE STRIP VI SCH (11:30)
[2021-09-01] MEDS ORDERED: DEXTROSE (50%) 50ML SYRG IV PRN (11:30)
[2021-09-01 12:24] VITALS: BP 148/79
[2021-09-01 16:24] VITALS: BP 152/52
[2021-09-01] MEDS ORDERED: CALCIUM GLUC IV NR ×5 (20:00)
[2021-09-01] MEDS ORDERED: INSULIN R IV NR ×5 (20:00)
[2021-09-01] MEDS ORDERED: [UNRECOGNIZED DRUG - OTHER] IV NR ×5 (20:00)
== END 2021-09-01 17:45 | disposition hospice, home (50) | DRG 871 ==
LOC: ER 19:26 → EDBD 19:26 → TELE 08-22 04:10 → TELE-EAST 08-22 11:36 → TELE-E-ADS 08-23 13:53 → TELE-EAST 08-29 12:04
PROVIDERS: ADMIT Nurse Practitioner Family; ATTEND Internal Medicine Geriatric Medicine
PROC: 5A09457 Assistance with Respiratory Ventilation, 24-96 Consecutive Hours, Continuous Positive Airway Pressure (ICD-10-PCS; principal; 2021-08-23)
PROC: 5A0935A Assistance with Respiratory Ventilation, Less than 24 Consecutive Hours, High Flow/Velocity Cannula (ICD-10-PCS; 2021-08-26)
PROC: 5A09357 Assistance with Respiratory Ventilation, Less than 24 Consecutive Hours, Continuous Positive Airway Pressure (ICD-10-PCS; 2021-08-26)
PROC: 5A09357 Assistance with Respiratory Ventilation, Less than 24 Consecutive Hours, Continuous Positive Airway Pressure (ICD-10-PCS; 2021-08-27)
PROC: 5A09357 Assistance with Respiratory Ventilation, Less than 24 Consecutive Hours, Continuous Positive Airway Pressure (ICD-10-PCS; 2021-08-28)
PROC: 5A09357 Assistance with Respiratory Ventilation, Less than 24 Consecutive Hours, Continuous Positive Airway Pressure (ICD-10-PCS; 2021-08-29)
PROC: 5A09357 Assistance with Respiratory Ventilation, Less than 24 Consecutive Hours, Continuous Positive Airway Pressure (ICD-10-PCS; 2021-08-30)
PROC: 5A09357 Assistance with Respiratory Ventilation, Less than 24 Consecutive Hours, Continuous Positive Airway Pressure (ICD-10-PCS; 2021-08-31)
PROC: 5A09357 Assistance with Respiratory Ventilation, Less than 24 Consecutive Hours, Continuous Positive Airway Pressure (ICD-10-PCS; 2021-09-01)
DX: A41.89 Other specified sepsis (principal); U07.1 COVID-19; J12.82 Pneumonia due to coronavirus disease 2019; J96.21 Acute and chronic respiratory failure with hypoxia; J96.22 Acute and chronic respiratory failure with hypercapnia; I50.23 Acute on chronic systolic (congestive) heart failure; I21.4 Non-ST elevation (NSTEMI) myocardial infarction; N17.9 Acute kidney failure, unspecified; E87.0 Hyperosmolality and hypernatremia; E87.1 Hypo-osmolality and hyponatremia; J44.0 Chronic obstructive pulmonary disease with (acute) lower respiratory infection; E11.22 Type 2 diabetes mellitus with diabetic chronic kidney disease; Z66 Do not resuscitate; I08.1 Rheumatic disorders of both mitral and tricuspid valves; E78.5 Hyperlipidemia, unspecified; I25.10 Atherosclerotic heart disease of native coronary artery without angina pectoris; E87.6 Hypokalemia; Z88.8 Allergy status to other drugs, medicaments and biological substances; Z83.3 Family history of diabetes mellitus; Z82.49 Family history of ischemic heart disease and other diseases of the circulatory system; Z82.3 Family history of stroke; Z87.891 Personal history of nicotine dependence
CPT/HCPCS: 36415; 36600; 51702; 71045; 76705; 80053; 80076; 81001; 82040; 82728; 82805; 82962; 83036; 83605; 83615; 83735; 83880; 84100; 84478; 84484; 85025; 85379; 85610; 85730; 86141; 87426; 93005; 94640; 94660; 96365; 96368; 96375; 96376; 97162; G0378; J0696; J1100; J1815; J3480; J3490